=== PATIENT | female | born 1985 | race Caucasian/White ===

== ENCOUNTER 2017-01-02 13:52 | Emergency (ER) | payer OTHER ==
[2017-01-02 14:30] VITALS: BP 146/92; PULSE 80
--- NOTE | 2017-01-02 14:43 | ERPHSYRPT ---
- History of Present Illness Time Seen by Provider: 01/02/17 14:28 Source: patient, family (boyfriend) Patient Subjective Stated Complaint: rt toothache since yesterday Triage Nursing Assessment: rt toothache since yesterday. pain radiates down rt neck. multiple dental caries. 'my veins are all swollen and i cant touch my rt face.' took keflex 2 weeks ago for uti. pt states 'i have mental illness and if i needed to go to the dentist i would need to go to [facility] in [place]' Physician History: CC: toothache Hx: 31 y/o patient of Dr Aden. She is a chronic user of meth and THC. LMP 4 days ago. She has right sided toothache and mouth swelling and is worried about infection. She has had sepsis in the past. Was on keflex 3 weeks ago for sinus infx. Has not seen dentist as she is scared. Allergies/Adverse Reactions: No Known Drug Allergies Allergy (Unverified 01/02/17 14:30) Home Medications: No Home Meds 1 ea UD 01/02/17 [History] Hx Tetanus, Diphtheria Vaccination/Date Given: Yes Hx Influenza Vaccination/Date Given: No Hx Pneumococcal Vaccination/Date Given: No Immunizations Up to Date: Yes - Review of Systems Constitutional: Fever Ears, Nose, & Throat: Mouth Pain Respiratory: No Dyspnea Abdominal/Gastrointestinal: No Vomiting Skin: No Rash Neurological: No Headache - Past Medical History Pertinent Past Medical History: Yes Neurological History: No Pertinent History ENT History: No Pertinent History Cardiac History: No Pertinent History Respiratory History: Bronchitis Endocrine Medical History: No Pertinent History Musculoskeletal History: Other GI Medical History: Ulcer History: No Pertinent History Psycho-Social History: Anxiety, Bipolar, Depression, Other Female Reproductive Disorders: Other Other Medical History: CHRONIC LOWER BACK PAIN, "problems in uterus". miscarriage - Past Surgical History Past Surgical History: Yes Neuro Surgical History: No Pertinent History Cardiac: No Pertinent History Respiratory: No Pertinent History Gastrointestinal: No Pertinent History Genitourinary: No Pertinent History Musculoskeletal: No Pertinent History Female Surgical History: Other Other Surgical History: D&C - Social History Smoking Status: Current every day smoker How long have you smoked: 15 Exposure to second hand smoke: Yes Alcohol Use: Socially Drug Use: marijuana, methamphetamines Patient Lives Alone: No Significant Family History: no pertinent family hx - Female History Hx Last Menstrual Period: 1 week Hx Now: No - Nursing Vital Signs Nursing Vital Signs: Initial Vital Signs Temperature 98.9 F Temperature Source Oral Pulse Rate 80 Respiratory Rate 18 Blood Pressure [Right Arm] 146/92 Pain Intensity 8 - Physical Exam General Appearance: alert Eye Exam: bilateral eye: PERRL Throat Exam: pharynx normal Neck Exam: normal inspection, supple Cardiovascular/Respiratory Exam: normal breath sounds, regular rate/rhythm Neurologic Exam: alert, oriented x 3, cooperative Skin Exam: warm, dry, other (no facial cellulitis) Comments: right lower molars are decayed with surrounding swelling and tenderness. No trismus. No facial cellulitis. - Course Nursing assessment & vital signs reviewed: Yes - Progress Progress Note: 01/02/17 14:39 Advised abtx and dental follow up. Counseled pt/family regarding: diagnosis, need for follow-up - Departure Time of Disposition: 14:39 Departure Disposition: Home Clinical Impression: Dental abscess Condition: Fair Critical Care Time: No Referrals: SHAWNEE ADEN MD [Primary Care Provider] - Instructions: Tooth Decay Additional Instructions: Rx augmentin. Rx ibuprofen. See dentist as soon as possible. Prescriptions: Ibuprofen 600 mg PO Q6H PRN PRN #24 tablet PRN Reason: Pain Amox Tr/Potass Clav. 875 mg [Augmentin 875-125 Tablet] 875 mg PO BID #20 tablet
== END 2017-01-02 14:50 | disposition home or self-care (01) ==
LOC: ED 13:52
DX: K04.7 Periapical abscess without sinus (principal)
CPT/HCPCS: 99281; 99283

== ENCOUNTER 2019-02-07 12:59 | Inpatient (IN) | payer OTHER ==
[2019-02-07 13:34] VITALS: BP 112/75; PULSE 97
[2019-02-07] MEDS ORDERED: OMNIPEN 2 GM / NACL 100ML 100 ML ONE (14:06)
[2019-02-07] MEDS ORDERED: Lactated Ringers 1,000 ML IV ONE (14:06)
[2019-02-07] MEDS ORDERED: TYLENOL EXTRA STRENGTH 500 MG PO PRN (14:16)
[2019-02-07] MEDS ORDERED: OMNIPEN 2 GM / NACL 100ML 100 ML IV ONE (14:16)
[2019-02-07] MEDS ORDERED: PITOCIN 30 UNITS/ LR 500 ML 500 ML IV SCH (14:30)
[2019-02-07] MEDS ORDERED: Lactated Ringers 1,000 ML IV SCH (14:30)
[2019-02-07 14:55] LABS: BASOPHIL % 0.1 % (0.0-0.4); Basophil (Absolute #) 0.01 (0-0.4); Eosinophil % 1.1 % (0.00-5.0); Eosinophil (Absolute #) 0.09 (0-0.5); Granulocyte Absolute (ANC) 4.71 (1.4-6.9); Granulocytes % 57.2 % (36.0-66.0); Hematocrit 36.9 % (35-47); Hemoglobin 12.4 gm/dl (12.0-16.0); Lymphocyte (Absolute #) 2.27 (1.0-4.6); Lymphocytes % 27.6 % (24.0-44.0); Mean Cell Volume 105.7 fl (78-100); Mean Corpuscular Hemoglobin 35.5 pg (26-32); Mean Corpuscular Hgb Concent. 33.6 g/dl (32-36); Mean Platelet Volume 10.2 fl (6-9.5); Monocyte (Absolute #) 1.15 (0.0-1.3); Platelet Count 274 K/mm3 (150-450); Red Blood Count 3.49 M/mm3 (4.1-5.4); Red Cell Distribution Width 13.7 % (11.5-14.0); White Blood Count 8.2 K/mm3 (4.0-10.5)
[2019-02-07 16:27] LABS: ABO TYPING O; Antibody Screen NEGATIVE (NEGATIVE); RH TYPING POSITIVE
[2019-02-07 16:57] LABS: Amphetamine,Urine POSITIVE (NEGATIVE)
[2019-02-07 17:01] LABS: Barbiturate,Urine NEGATIVE (NEGATIVE); Benzodiazepine,Urine NEGATIVE (NEGATIVE); Cocaine,Urine NEGATIVE (NEGATIVE); Methadone,Urine NEGATIVE (NEGATIVE); Opiate,Urine NEGATIVE (NEGATIVE); PCP,Urine NEGATIVE (NEGATIVE); THC,Urine NEGATIVE (NEGATIVE)
[2019-02-10 15:13] LABS: Immune Status: Immune
[2019-02-10 20:20] LABS: RPR Screen Non Reactive (Non Reactive)
== END 2019-02-07 18:20 | disposition short-term general hospital (02) | DRG 833 ==
LOC: OB 12:59 → OBSVTOIN 12:59
PROVIDERS: ADMIT Family Medicine; ATTEND Family Medicine
DX: O42.113 Preterm premature rupture of membranes, onset of labor more than 24 hours following rupture, third trimester (principal); Z3A.35 35 weeks gestation of pregnancy
CPT/HCPCS: 36415; 80307; 83986; 85025; 86592; 86593; 86701; 86702; 86762; 86850; 86900; 86901; 87340; 87389; J0290; 0064U; 0065U

== ENCOUNTER 2019-09-29 12:25 | Emergency (ER) | payer MEDICAID, OTHER ==
--- NOTE | 2019-09-29 12:46 | ERPHSYRPT ---
- History of Present Illness Time Seen by Provider: 09/29/19 12:46 Source: patient Exam Limitations: no limitations Physician History: 34m y/o white female presents with "sores" on several sites on her body. 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 pt also has a h/o chlamydial infection that has gone untx. pt does not want any work up except for test. Timing/Duration: gradual onset Severity: mild ENT Location: ear (R) Prearrival Treatment: no prearrival treatment Modifying Factors: Improves With: other (nothing) Associated Symptoms: other (skin sore left ext ear) Allergies/Adverse Reactions: No Known Drug Allergies Allergy (Verified 09/29/19 12:56) Hx Tetanus, Diphtheria Vaccination/Date Given: Yes Hx Influenza Vaccination/Date Given: No Hx Pneumococcal Vaccination/Date Given: No - Review of Systems Constitutional: No Symptoms Eyes: No Symptoms Ears, Nose, & Throat: No Symptoms Respiratory: No Symptoms Cardiac: No Symptoms Abdominal/Gastrointestinal: No Symptoms Genitourinary Symptoms: No Symptoms Musculoskeletal: No Symptoms Skin: Other (skin lesions multiple) Neurological: No Symptoms Psychological: No Symptoms Endocrine: No Symptoms Hematologic/Lymphatic: No Symptoms Immunological/Allergic: No Symptoms All Other Systems: Reviewed and Negative - Past Medical History Pertinent Past Medical History: No Neurological History: No Pertinent History ENT History: No Pertinent History Cardiac History: No Pertinent History Respiratory History: No Pertinent History Endocrine Medical History: No Pertinent History Musculoskeletal History: No Pertinent History GI Medical History: No Pertinent History History: No Pertinent History Psycho-Social History: No Pertinent History Female Reproductive Disorders: No Pertinent History Other Medical History: CHRONIC LOWER BACK PAIN, "problems in uterus". miscarriage - Past Surgical History Past Surgical History: Yes Neuro Surgical History: No Pertinent History Cardiac: No Pertinent History Respiratory: No Pertinent History Gastrointestinal: No Pertinent History Genitourinary: No Pertinent History Musculoskeletal: No Pertinent History Female Surgical History: Dilation & Curettage Other Surgical History: D&C 2001 - Social History Smoking Status: Current every day smoker How long have you smoked: 20+yrs Exposure to second hand smoke: Yes Alcohol Use: Socially Drug Use: marijuana Patient Lives Alone: No Significant Family History: no pertinent family hx - Nursing Vital Signs Nursing Vital Signs: Initial Vital Signs Temperature 98.3 F 09/29/19 12:39 Pulse Rate 84 02/03/20 12:39 Respiratory Rate 20 09/29/19 12:39 Blood Pressure 147/92 09/29/19 12:39 O2 Sat by Pulse Oximetry 100 09/29/19 12:39 Pain Scale Pain Intensity 8 - Physical Exam General Appearance: no apparent distress, alert, anxiety Eye Exam: bilateral eye: normal inspection, PERRL, EOMI Ear Exam: right ear: auricle normal, left ear: other (external left auricle with superficial scalding) Nasal Exam: normal inspection Throat Exam: normal Neck Exam: normal inspection, non-tender, supple, full range of motion, trachea midline Cardiovascular/Respiratory Exam: chest non-tender Abdominal Exam: non-tender Neurologic Exam: alert, oriented x 3, administrative supervisor II-XII nml as tested Skin Exam: other (several eschars with mild redness on body. eschar left auricle ) SpO2 Interpretation: normal O2 Delivery: Room Air - Course Nursing assessment & vital signs reviewed: Yes Ordered Tests: Active Orders 24 hr Category Date Time Status HCG,QUALITATIVE URINE Stat Lab 09/29/19 13:09 Completed Lab/Rad Data: Laboratory Results 09/29/19 Range/Units 13:09 Urine HCG, Qual NEGATIVE (Negative) - Progress Progress: unchanged Counseled pt/family regarding: diagnosis, need for follow-up - Departure Departure Disposition: Home Clinical Impression: Cellulitis of external ear, Chlamydial infection Condition: Stable Critical Care Time: No Additional Instructions: fill all medications and take as prescribed. follow up with primary doctor for further management Prescriptions: Azithromycin 250 mg [Zithromax 250 MG TABLET] 250 mg PO STAT #4 tablet Smz/Tmp Ds Tablet [Bactrim Ds Tablet] 1 udtab PO BID #14 tablet
[2019-09-29 12:57] VITALS: BP 147/92; PULSE 84; O2SAT 100
== END 2019-09-29 13:30 | disposition home or self-care (01) ==
LOC: ED 12:25
DX: H60.12 Cellulitis of left external ear (principal); A74.9 Chlamydial infection, unspecified
CPT/HCPCS: 84703; 99283

== ENCOUNTER 2019-12-02 12:32 | Emergency (ER) | payer MEDICAID ==
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
[2019-12-02 13:21] VITALS: BP 140/90; PULSE 102; O2SAT 97
== END 2019-12-02 13:05 | disposition left against medical advice (07) ==
LOC: ED 12:32
DX: S02.2XXA Fracture of nasal bones, initial encounter for closed fracture (principal); T74.11XA Adult physical abuse, confirmed, initial encounter; F10.129 Alcohol abuse with intoxication, unspecified; F20.9 Schizophrenia, unspecified; Z91.14 Patient's other noncompliance with medication regimen; R51 Headache; M54.9 Dorsalgia, unspecified; G89.29 Other chronic pain; F45.42 Pain disorder with related psychological factors
CPT/HCPCS: 99283

== ENCOUNTER 2020-09-12 17:47 | Observation (INO) | payer MEDICAID, OTHER ==
--- NOTE | 2020-09-12 18:22 | ERPHSYRPT ---
- History of Present Illness Source: patient Exam Limitations: no limitations Timing/Duration: hour(s) (3), sudden, improved Severity: moderate Character of Deficits: new weakness, altered sensation Deficits: decrease ability to walk Baseline/Normal Cognition: alert oriented x 3 Current Cognition: alert oriented x 3 Baseline Gait: walks w/o assistance Associated Symptoms: nausea, weakness, numbness/tingling in legs/feet, paresthesia, chest pain, No confusion, No fatigue, No loss of consciousness, No vomiting, No slurred speech Hx Tetanus, Diphtheria Vaccination/Date Given: Yes Hx Influenza Vaccination/Date Given: No Hx Pneumococcal Vaccination/Date Given: No <LYNNETTE GERBER - Last Filed: 09/12/20 18:17> <JET YU - Last Filed: 09/12/20 19:41> - History of Present Illness Time Seen by Provider: 09/12/20 17:59 Physician History: 35 years old female with history of anxiety depression, alcohol abuse in the past presented in the ER with chief complaint of sudden onset right-sided numbness tingling and some weakness around 3 PM when she was at the charge. It lasted for almost 10 minutes and started to improve. She has minimal weakness but still have tingling numbness in the right side more than the right lower extremity. Patient report all of a sudden she started to have some palpitation and dizzy feeling with some chest discomfort followed by numbness and weakness. Reports right sided especially right lower extremity feels heavier than the left one. She has difficulty ambulation with feeling as if she is going to fall on the right side. She still have some chest discomfort but denies any palpitations or shortness of breath. Patient reports she had a distaste in her throat and it seemed like she had a difficulty finding words but no slurring of speech. Denies any history of stroke or neurological deficit in the past. Patient reports she had at 3 glasses of wine last night. (LYNNETTE GERBER) Allergies/Adverse Reactions: No Known Drug Allergies Allergy (Verified 09/12/20 18:44) Home Medications: No Reportable Medications [No Reported Medications] 12/02/19 [History] - Review of Systems Constitutional: Fatigue, Weakness Eyes: No Symptoms Ears, Nose, & Throat: No Symptoms Respiratory: No Symptoms Cardiac: Chest Pain, Palpitations Abdominal/Gastrointestinal: Nausea Genitourinary Symptoms: No Symptoms Musculoskeletal: No Symptoms Skin: No Symptoms Neurological: Dizziness, Parasthesia, Sensory Changes Psychological: Anxiety, Depression Endocrine: No Symptoms Hematologic/Lymphatic: No Symptoms Immunological/Allergic: No Symptoms <LYNNETTE GERBER - Last Filed: 09/12/20 18:17> - Past Medical History Pertinent Past Medical History: No Neurological History: No Pertinent History ENT History: No Pertinent History Cardiac History: No Pertinent History Respiratory History: No Pertinent History Endocrine Medical History: No Pertinent History Musculoskeletal History: No Pertinent History GI Medical History: No Pertinent History History: No Pertinent History Psycho-Social History: No Pertinent History Female Reproductive Disorders: No Pertinent History Other Medical History: CHRONIC LOWER BACK PAIN, "problems in uterus". miscarriage - Past Surgical History Past Surgical History: Yes Neuro Surgical History: No Pertinent History Cardiac: No Pertinent History Respiratory: No Pertinent History Gastrointestinal: No Pertinent History Genitourinary: No Pertinent History Musculoskeletal: No Pertinent History Female Surgical History: Dilation & Curettage Other Surgical History: D&C 2001 - Social History Smoking Status: Current every day smoker How long have you smoked: 20+yrs Exposure to second hand smoke: Yes Alcohol Use: Socially Drug Use: marijuana Patient Lives Alone: No Significant Family History: no pertinent family hx - Female History Hx Now: No <LYNNETTE GERBER - Last Filed: 09/12/20 18:17> - Ben Coma Scale Best Eye Response ([place]): (4) open spontaneously Best Verbal Response (Ben): (5) oriented Best Motor Response (Ben): (6) obeys commands Ben Total: 15 - Physical Exam General Appearance: no apparent distress, alert, anxiety Eye Exam: bilateral eye: normal inspection, PERRL, EOMI Ears, Nose, Throat Exam: normal ENT inspection, TMs normal, pharynx normal Neck Exam: normal inspection, non-tender, supple, full range of motion Respiratory: normal breath sounds, lungs clear Cardiovascular: regular rate/rhythm, normal heart sounds Gastrointestinal: soft, normal bowel sounds, No tenderness Back Exam: normal inspection, normal range of motion Extremity Exam: normal inspection, normal range of motion, pelvis stable Mental Status: alert, oriented x 3, cooperative retail furniture sales Exam: normal hearing, normal speech, PERRL Coordination/Gait: normal finger to nose, normal cerebellar function, No normal gait Motor/Sensory: no motor deficit, no pronator drift, negative Babinski's sign, sensory deficit (It is of fine touch on the right upper and lower extremities as compared to left) DTR: bicep (R): 2+, bicep (L): 2+, knee (R): 2+, knee (L): 2+ Skin Exam: normal color SpO2 Interpretation: normal O2 Delivery: Room Air <LYNNETTE GERBER - Last Filed: 09/12/20 18:17> - Nursing Vital Signs Nursing Vital Signs: Initial Vital Signs Temperature 99.2 F 09/12/20 17:50 Pulse Rate 89 09/12/20 17:50 Respiratory Rate 14 09/12/20 17:50 Blood Pressure 141/92 09/12/20 17:50 O2 Sat by Pulse Oximetry 97 09/12/20 17:50 Pain Scale Pain Intensity 5 - Course Nursing assessment & vital signs reviewed: Yes EKG Interpreted by Me: Sinus Rhythm, NORMAL AXIS, NORMAL INTERVALS, NORMAL QRS, Non-specific ST Changes - CT Exams Head CT Interpretation: Tele-radiologist Report, No/Intracranial Hemorrhag <JET YU - Last Filed: 09/12/20 19:41> Ordered Tests: Active Orders 24 hr Category Date Time Status Helicopter Dispatcher STAT Care 09/12/20 18:07 Active Clean Catch Urine Specimen STAT Care 09/12/20 18:49 Active EKG-ER Only STAT Care 09/12/20 18:06 Active IV Insertion STAT Care 09/12/20 18:06 Active NPO (ED) STAT Care 09/12/20 18:06 Active POCT Glucose Check STAT Care 09/12/20 18:06 Active Consult Neurology ROUTINE Cons 09/12/20 18:46 Completed CHEST 1 VIEW (PORTABLE) Stat Exams 09/12/20 18:30 Ordered HEAD WITHOUT CONTRAST [CT] Stat Exams 09/12/20 17:57 Taken CBC W DIFF Stat Lab 09/12/20 18:20 Completed CMP Stat Lab 09/12/20 18:20 Completed CULTURE,URINE Stat Lab 09/12/20 18:26 Received D-DIMER QUANTITATIVE Stat Lab 09/12/20 18:20 Completed ETHYL ALCOHOL Stat Lab 09/12/20 18:20 Completed HCG,QUALITATIVE URINE Stat Lab 09/12/20 18:26 Completed POCT GLUCOSE Stat Lab 09/12/20 18:13 Completed PROTIME WITH INR Stat Lab 09/12/20 18:20 Completed PTT Stat Lab 09/12/20 18:20 Completed TROPONIN Q3H Lab 09/12/20 18:20 Completed TROPONIN Q3H Lab 09/12/20 21:15 Ordered UA W/RFX UR CULTURE Stat Lab 09/12/20 18:26 Completed Urine Triage Profile Stat Lab 09/12/20 18:20 Completed Medication Summary Generic Name Dose Route Start Last Admin Trade Name Freq PRN Reason Stop Dose Admin Ceftriaxone Sodium/Dextrose 1 g in 50 mls @ 100 mls/hr 09/12/20 19:11 09/12/20 19:19 Rocephin 1 Gm-D5w 50 Ml Bag IV 09/12/20 19:40 100 ml/hr STAT ONE 100 mls/hr Administration Discontinued Medications Generic Name Dose Route Start Last Admin Trade Name Freq PRN Reason Stop Dose Admin Ceftriaxone Sodium/Dextrose Confirm 09/12/20 19:17 Rocephin 1 Gm-D5w 50 Ml Bag Administered 09/12/20 19:18 Dose 1 g in 50 mls @ ud IV .STK-MED ONE Lab/Rad Data: Laboratory Result Diagrams 09/12/20 18:20 09/12/20 18:20 Laboratory Results 09/12/20 09/12/20 09/12/20 Range/Units 18:26 18:26 18:20 WBC (4.0-10.5) K/mm3 RBC (4.1-5.4) M/mm3 Hgb (12.0-16.0) gm/dl Hct (35-47) % MCV (78-100) fl MCH (26-32) pg MCHC (32-36) g/dl RDW (11.5-14.0) % Plt Count (150-450) K/mm3 MPV (7.5-11.0) fl Gran % (36.0-66.0) % Eos # (Auto) (0-0.5) Absolute Lymphs (auto) (1.0-4.6) Absolute Monos (auto) (0.0-1.3) Lymphocytes % (24.0-44.0) % Monocytes % (0.0-12.0) % Eosinophils % (0.00-5.0) % Basophils % (0.0-0.4) % Absolute Granulocytes (1.4-6.9) Basophils # (0-0.4) PT (9.95-12.35) SECONDS INR (0.8-3.0) APTT (25.3-37.0) SECONDS D-Dimer (215-500) ng/mL Sodium (137-145) mmol/L Potassium (3.5-5.1) mmol/L Chloride (98-107) mmol/L Carbon Dioxide (22-30) mmol/L Anion Gap (5-15) MEQ/L BUN (7-17) mg/dL Creatinine (0.52-1.04) mg/dL Estimated GFR ML/MIN Glucose (74-106) mg/dL POC Glucometer (74 to 106) mg/dL Calcium (8.4-10.2) mg/dL Total Bilirubin (0.2-1.3) mg/dL AST (14-36) U/L ALT (0-35) U/L Alkaline Phosphatase (38-126) U/L Troponin I (0.000-0.034) ng/mL Serum Total Protein (6.3-8.2) g/dL Albumin (3.5-5.0) g/dL Urine Color YELLOW (YELLOW) Urine Appearance SLIGHTLY CLOUDY (CLEAR) Urine pH 5.0 (5-6) Ur Specific [place] 1.024 (1.005-1.025) Urine Protein NEGATIVE (Negative) Urine Ketones NEGATIVE (NEGATIVE) Urine Blood MODERATE (0-5) Jason/ul Urine Nitrite NEGATIVE (NEGATIVE) Urine Bilirubin NEGATIVE (NEGATIVE) Urine Urobilinogen 2 (0-1) mg/dL Ur Leukocyte Esterase TRACE (NEGATIVE) Urine WBC (Auto) 11-15 (0-5) /HPF Urine RBC (Auto) 0-2 (0-2) /HPF U Epithel Cells (Auto) RARE (FEW) /HPF Urine Bacteria (Auto) FEW (NEGATIVE) /HPF Urine Mucus (Auto) SLIGHT (NEGATIVE) /HPF Urine Culture Reflexed YES (NO) Urine Glucose NEGATIVE (NEGATIVE) mg/dL Urine HCG, Qual NEGATIVE (Negative) Urine Opiates Level (NEGATIVE) Ur Methadone (NEGATIVE) Urine Barbiturates (NEGATIVE) Ur Phencyclidine (PCP) (NEGATIVE) Urine Amphetamine (NEGATIVE) U Benzodiazepine Level (NEGATIVE) Urine Cocaine (NEGATIVE) Urine Marijuana (THC) (NEGATIVE) Ethyl Alcohol < 10 (0-10) mg/dL 09/12/20 09/12/20 09/12/20 Range/Units 18:20 18:20 18:20 WBC (4.0-10.5) K/mm3 RBC (4.1-5.4) M/mm3 Hgb (12.0-16.0) gm/dl Hct (35-47) % MCV (78-100) fl MCH (26-32) pg MCHC (32-36) g/dl RDW (11.5-14.0) % Plt Count (150-450) K/mm3 MPV (7.5-11.0) fl Gran % (36.0-66.0) % Eos # (Auto) (0-0.5) Absolute Lymphs (auto) (1.0-4.6) Absolute Monos (auto) (0.0-1.3) Lymphocytes % (24.0-44.0) % Monocytes % (0.0-12.0) % Eosinophils % (0.00-5.0) % Basophils % (0.0-0.4) % Absolute Granulocytes (1.4-6.9) Basophils # (0-0.4) PT 11.1 (9.95-12.35) SECONDS INR 0.98 (0.8-3.0) APTT 29.3 (25.3-37.0) SECONDS D-Dimer 462 (215-500) ng/mL Sodium (137-145) mmol/L Potassium (3.5-5.1) mmol/L Chloride (98-107) mmol/L Carbon Dioxide (22-30) mmol/L Anion Gap (5-15) MEQ/L BUN (7-17) mg/dL Creatinine (0.52-1.04) mg/dL Estimated GFR ML/MIN Glucose (74-106) mg/dL POC Glucometer (74 to 106) mg/dL Calcium (8.4-10.2) mg/dL Total Bilirubin (0.2-1.3) mg/dL AST (14-36) U/L ALT (0-35) U/L Alkaline Phosphatase (38-126) U/L Troponin I < 0.012 (0.000-0.034) ng/mL Serum Total Protein (6.3-8.2) g/dL Albumin (3.5-5.0) g/dL Urine Color (YELLOW) Urine Appearance (CLEAR) Urine pH (5-6) Ur Specific [place] (1.005-1.025) Urine Protein (Negative) Urine Ketones (NEGATIVE) Urine Blood (0-5) Jason/ul Urine Nitrite (NEGATIVE) Urine Bilirubin (NEGATIVE) Urine Urobilinogen (0-1) mg/dL Ur Leukocyte Esterase (NEGATIVE) Urine WBC (Auto) (0-5) /HPF Urine RBC (Auto) (0-2) /HPF U Epithel Cells (Auto) (FEW) /HPF Urine Bacteria (Auto) (NEGATIVE) /HPF Urine Mucus (Auto) (NEGATIVE) /HPF Urine Culture Reflexed (NO) Urine Glucose (NEGATIVE) mg/dL Urine HCG, Qual (Negative) Urine Opiates Level NEGATIVE (NEGATIVE) Ur Methadone NEGATIVE (NEGATIVE) Urine Barbiturates NEGATIVE (NEGATIVE) Ur Phencyclidine (PCP) NEGATIVE (NEGATIVE) Urine Amphetamine NEGATIVE (NEGATIVE) U Benzodiazepine Level NEGATIVE (NEGATIVE) Urine Cocaine NEGATIVE (NEGATIVE) Urine Marijuana (THC) NEGATIVE (NEGATIVE) Ethyl Alcohol (0-10) mg/dL 09/12/20 09/12/20 09/12/20 Range/Units 18:20 18:20 18:13 WBC 15.5 H (4.0-10.5) K/mm3 RBC 4.12 (4.1-5.4) M/mm3 Hgb 12.8 (12.0-16.0) gm/dl Hct 39.9 (35-47) % MCV 96.8 (78-100) fl MCH 31.1 (26-32) pg MCHC 32.1 (32-36) g/dl RDW 19.3 H (11.5-14.0) % Plt Count 408 (150-450) K/mm3 MPV 9.5 (7.5-11.0) fl Gran % 67.0 H (36.0-66.0) % Eos # (Auto) 0.13 (0-0.5) Absolute Lymphs (auto) 3.43 (1.0-4.6) Absolute Monos (auto) 1.50 H (0.0-1.3) Lymphocytes % 22.2 L (24.0-44.0) % Monocytes % 9.7 (0.0-12.0) % Eosinophils % 0.8 (0.00-5.0) % Basophils % 0.3 (0.0-0.4) % Absolute Granulocytes 10.35 H (1.4-6.9) Basophils # 0.04 (0-0.4) PT (9.95-12.35) SECONDS INR (0.8-3.0) APTT (25.3-37.0) SECONDS D-Dimer (215-500) ng/mL Sodium 135 L (137-145) mmol/L Potassium 3.7 (3.5-5.1) mmol/L Chloride 103 (98-107) mmol/L Carbon Dioxide 26 (22-30) mmol/L Anion Gap 10.0 (5-15) MEQ/L BUN 12 (7-17) mg/dL Creatinine 0.55 (0.52-1.04) mg/dL Estimated GFR > 60.0 ML/MIN Glucose 96 (74-106) mg/dL POC Glucometer 93 (74 to 106) mg/dL Calcium 9.1 (8.4-10.2) mg/dL Total Bilirubin 0.40 (0.2-1.3) mg/dL AST 30 (14-36) U/L ALT 28 (0-35) U/L Alkaline Phosphatase 83 (38-126) U/L Troponin I (0.000-0.034) ng/mL Serum Total Protein 8.7 H (6.3-8.2) g/dL Albumin 4.7 (3.5-5.0) g/dL Urine Color (YELLOW) Urine Appearance (CLEAR) Urine pH (5-6) Ur Specific [place] (1.005-1.025) Urine Protein (Negative) Urine Ketones (NEGATIVE) Urine Blood (0-5) Jason/ul Urine Nitrite (NEGATIVE) Urine Bilirubin (NEGATIVE) Urine Urobilinogen (0-1) mg/dL Ur Leukocyte Esterase (NEGATIVE) Urine WBC (Auto) (0-5) /HPF Urine RBC (Auto) (0-2) /HPF U Epithel Cells (Auto) (FEW) /HPF Urine Bacteria (Auto) (NEGATIVE) /HPF Urine Mucus (Auto) (NEGATIVE) /HPF Urine Culture Reflexed (NO) Urine Glucose (NEGATIVE) mg/dL Urine HCG, Qual (Negative) Urine Opiates Level (NEGATIVE) Ur Methadone (NEGATIVE) Urine Barbiturates (NEGATIVE) Ur Phencyclidine (PCP) (NEGATIVE) Urine Amphetamine (NEGATIVE) U Benzodiazepine Level (NEGATIVE) Urine Cocaine (NEGATIVE) Urine Marijuana (THC) (NEGATIVE) Ethyl Alcohol (0-10) mg/dL <LYNNETTE GERBER - Last Filed: 09/12/20 18:17> - Progress Progress: improved, re-examined Discussed with : Clif[place] Will see patient in: hospital (observation) Counseled pt/family regarding: drug and/or alcohol abuse, lab results, diagnosis, need for follow-up, rad results <JET YU - Last Filed: 09/12/20 19:41> - Progress Progress Note: 09/12/20 18:32 35 years old is evaluated for sudden onset palpitation followed by dizziness, lightheadedness and right-sided numbness weakness. She has minimal subjective weakness and numbness is also improving. She is made stroke activated. Prompt CT head without contrast is obtained. Will obtain SOC neurology consult promptly. Work-up is pending at present, care is transferred to Dr. Sullivan at shift change (LYNNETTE GERBER) 09/12/20 18:49 Taken over at change of shift from Dr. Gerber after pt intro, and discussion of DDx and pending labs/studies; 09/12/20 19:[address] Gooden Neuro consult and can be placed on Obs for possible TIA - No current CVA likely but low prob possible TIA to obs as precaution) and continue monitoring for ETOH withdrawal and cardiac. 09/12/20 19:[address] Draper and pt and all agree that it is best to place the pt in on TIA workup obs telemetry. (JET YU) <LNYNETTE GERBER - Last Filed: 09/12/20 18:17> - Departure Departure Disposition: Observation Critical Care Time: No <JET YU - Last Filed: 09/12/20 19:41> - Departure Clinical Impression: UTI (urinary tract infection), TIA (transient ischemic attack), Alcohol abuse, Chest pain Condition: Good Referrals: DOCTOR,NO FAMILY [Primary Care Provider] -
[2020-09-12 18:36] LABS: Absolute Neutrophil Ct (ANC) 10.35 (1.4-6.9); BASOPHIL % 0.3 % (0.0-0.4); Basophil (Absolute #) 0.04 (0-0.4); Eosinophil % 0.8 % (0.00-5.0); Eosinophil (Absolute #) 0.13 (0-0.5); Hematocrit 39.9 % (35-47); Hemoglobin 12.8 gm/dl (12.0-16.0); Lymphocyte (Absolute #) 3.43 (1.0-4.6); Lymphocytes % 22.2 % (24.0-44.0); Mean Cell Volume 96.8 fl (78-100); Mean Corpuscular Hemoglobin 31.1 pg (26-32); Mean Corpuscular Hgb Concent. 32.1 g/dl (32-36); Mean Platelet Volume 9.5 fl (7.5-11.0); Monocytes % 9.7 % (0.0-12.0); Platelet Count 408 K/mm3 (150-450); Red Blood Count 4.12 M/mm3 (4.1-5.4); Red Cell Distribution Width 19.3 % (11.5-14.0); White Blood Count 15.5 K/mm3 (4.0-10.5)
[2020-09-12 18:37] LABS: Appearance SLIGHTLY CLOUDY (CLEAR); Bacteria FEW /HPF (NEGATIVE); Bilirubin NEGATIVE (NEGATIVE); Blood MODERATE Ery/ul (0-5); Epithelial Cells RARE /HPF (FEW); Glucose NEGATIVE (NEGATIVE); Ketones NEGATIVE (NEGATIVE); Leukocyte Esterase TRACE (NEGATIVE); Mucus SLIGHT /HPF (NEGATIVE); Nitrite NEGATIVE (NEGATIVE); Protein,Urine Dip NEGATIVE (Negative); RBC 0-2 /HPF (0-2); Specific Gravity 1.024 (1.005-1.025); Urobilinogen 2 mg/dL (0-1)
[2020-09-12 18:42] LABS: INR 0.98 (0.8-3.0); PROTIME 11.1 SECONDS (9.95-12.35)
[2020-09-12 18:45] LABS: PTT 29.3 SECONDS (25.3-37.0)
[2020-09-12 18:53] LABS: ALBUMIN 4.7 g/dL (3.5-5.0); ALKALINE PHOSPHATASE 83 U/L (38-126); BLOOD UREA NITROGEN 12 mg/dL (7-17); CHLORIDE 103 mmol/L (98-107); Calcium 9.1 mg/dL (8.4-10.2); Carbon Dioxide 26 mmol/L (22-30); Creatinine 1 0.55 mg/dL (0.52-1.04); EST GLOMERULAR FILTRATION RATE > 60.0 ML/MIN; Glucose 96 mg/dL (74-106); Potassium 3.7 mmol/L (3.5-5.1); SGOT/AST 30 U/L (14-36); SGPT/ALT 28 U/L (0-35); SODIUM 135 mmol/L (137-145); Total Protein 8.7 g/dL (6.3-8.2)
[2020-09-12] MEDS ORDERED: ROCEPHIN 1 Gm-D5w 50 ml Bag** 1 G/50 ML IVPB IV ONE ×2 (19:11→19:17)
[2020-09-12 19:17] LABS: Amphetamine,Urine NEGATIVE (NEGATIVE); Barbiturate,Urine NEGATIVE (NEGATIVE); Benzodiazepine,Urine NEGATIVE (NEGATIVE); Cocaine,Urine NEGATIVE (NEGATIVE); Methadone,Urine NEGATIVE (NEGATIVE); Opiate,Urine NEGATIVE (NEGATIVE); PCP,Urine NEGATIVE (NEGATIVE); THC,Urine NEGATIVE (NEGATIVE)
[2020-09-12] MEDS ORDERED: Zofran 4 MG/2 ML VIAL IV PRN ×2 (20:48)
[2020-09-12] MEDS ORDERED: TYLENOL 325 MG PO PRN ×2 (20:48)
[2020-09-12] MEDS ORDERED: MAALOX ES 30 ML UNIT DOSE PO PRN (20:48)
[2020-09-12] MEDS ORDERED: Phenergan 25 MG INJ IM PRN (20:48)
[2020-09-12] MEDS ORDERED: MILK OF MAGNESIA 30 ML PO PRN (20:48)
[2020-09-12] MEDS ORDERED: Senokot-S Tablet PO PRN (20:48)
[2020-09-12] MEDS ORDERED: TORAdol 30 mg Injection IV PRN (20:48)
[2020-09-12] MEDS ORDERED: Sodium Chloride 0.9% 1000 ML 1,000 ML IV SCH (20:48)
[2020-09-12] MEDS ORDERED: HUMULIN R SQ PRN (20:48)
[2020-09-12 20:59] LABS: Slide Review 1 YES
[2020-09-12] MEDS ORDERED: Neurontin 100 MG PO PRN (21:06)
[2020-09-12] MEDS ORDERED: Ativan 1 MG PO PRN (21:07)
[2020-09-12] MEDS ORDERED: Nicoderm CQ 21 MG TOP PRN (21:08)
[2020-09-12] MEDS ORDERED: Pepcid 20 MG VIAL IV SCH (22:00)
[2020-09-13 06:23] LABS: Absolute Neutrophil Ct (ANC) 5.31 (1.4-6.9); BASOPHIL % 0.4 % (0.0-0.4); Basophil (Absolute #) 0.04 (0-0.4); Eosinophil % 1.7 % (0.00-5.0); Eosinophil (Absolute #) 0.18 (0-0.5); Hematocrit 37.5 % (35-47); Hemoglobin 11.7 gm/dl (12.0-16.0); Lymphocyte (Absolute #) 3.52 (1.0-4.6); Lymphocytes % 34.2 % (24.0-44.0); Mean Cell Volume 98.4 fl (78-100); Mean Corpuscular Hemoglobin 30.7 pg (26-32); Mean Corpuscular Hgb Concent. 31.2 g/dl (32-36); Mean Platelet Volume 9.5 fl (7.5-11.0); Monocyte (Absolute #) 1.24 (0.0-1.3); Monocytes % 12.1 % (0.0-12.0); Neutrophil % 51.6 % (36.0-66.0); Platelet Count 336 K/mm3 (150-450); Red Blood Count 3.81 M/mm3 (4.1-5.4); Red Cell Distribution Width 19.2 % (11.5-14.0); White Blood Count 10.3 K/mm3 (4.0-10.5)
[2020-09-13 07:25] LABS: ALBUMIN 3.3 g/dL (3.5-5.0); ALKALINE PHOSPHATASE 60 U/L (38-126); ANION GAP 7.5 MEQ/L (5-15); BLOOD UREA NITROGEN 13 mg/dL (7-17); CHLORIDE 107 mmol/L (98-107); Calcium 8.1 mg/dL (8.4-10.2); Carbon Dioxide 25 mmol/L (22-30); Cholesterol 160 mg/dL (50-200); Creatinine 1 0.53 mg/dL (0.52-1.04); EST GLOMERULAR FILTRATION RATE > 60.0 ML/MIN; Glucose 83 mg/dL (74-106); HDL CHOLESTEROL 60 mg/dL (40-60); LDL, DIRECT 70 mg/dL (30-100); Potassium 4.1 mmol/L (3.5-5.1); Risk Ratio 2.7; SGOT/AST 32 U/L (14-36); SGPT/ALT 19 U/L (0-35); SODIUM 136 mmol/L (137-145); TRIGLYCERIDE 82 mg/dL (30-150); Total Protein 6.4 g/dL (6.3-8.2)
[2020-09-13 08:03] VITALS: O2SAT 97
[2020-09-13 08:22] VITALS: BP 110/56; PULSE 72
--- NOTE | 2020-09-13 08:40 | XRAY ---
Indication: Numbness. Comparison: June 17, 2016. Portable apical lordotic chest again demonstrates normal heart, lungs, and bony thorax with incidental left hilar calcified node.
--- NOTE | 2020-09-13 08:42 | XRAY ---
Indication: Right numbness. Speech disturbance. Stroke symptoms. Multiple contiguous axial images obtained through the head without contrast. Comparison: None Normal appearing brain parenchyma, ventricles, and bony calvarium. Visualized paranasal sinuses and mastoid air cells are clear. Impression: Normal CT head without contrast exam. Comment: Preliminary interpretation was made by [facility]. No critical discrepancy.
[2020-09-13] MEDS ORDERED: Ecotrin 325 MG PO SCH (10:00)
[2020-09-13] MEDS ORDERED: ENOXAPARIN SODIUM SQ SCH (10:00)
[2020-09-13] MEDS ORDERED: ROCEPHIN 1 Gm-D5w 50 ml Bag** 1 G/50 ML IVPB IV SCH (18:00)
--- NOTE | 2020-09-14 07:51 | HP ---
CHIEF COMPLAINT: Sudden blurred vision and difficulty moving the right arm and leg and difficulty speaking. HISTORY OF PRESENT ILLNESS: The patient is a 35 year old white female who reports she was in hinduism when she had the sudden onset of the above the symptoms which lasted for several minutes. She presented to the emergency room at which time the patient was essentially back to normal. The patient's medical history is significant for anxiety and depression, significant alcohol abuse. The patient currently has no regular home. She will be going home with someone who lives in [facility] and will be staying with them for the foreseeable future. PAST MEDICAL/SURGICAL HISTORY: Significant only for childbirth and the alcohol problem. The patient reports that she had a D&C in 2001. HOME MEDICATIONS: The patient is on no medications. ALLERGIES: NKDA. PHYSICAL EXAMINATION: The patient's vital signs on admission showed temperature to be 99.2F, pulse 89, respiratory rate 14 and blood pressure 141/92. O2 saturation was 97%. HEENT: Normocephalic, atraumatic. Pupils equal round reactive to light. Extraocular movements intact. Oropharynx is pink and moist. NECK: Supple without lymphadenopathy, thyromegaly or JVD. CHEST: Clear to auscultation. HEART: Regular rate and rhythm without murmurs, rubs or gallops. ABDOMEN: Soft. No palpable masses. EXTREMITIES: Without cyanosis, clubbing or edema. NEUROLOGIC: The patient is alert and oriented x3. No focal deficits are noted. LAB DATA AND TESTS: UA showed 11-15 white blood cells per high power field but negative nitrite. The patient has had no complaints of urinary symptoms. Her urine HCG was negative. Urine drug screen was negative. D-dimer was normal at 492. INR 0.98. Troponins were negative. Alcohol was negative. The patient's metabolic panel showed a glucose of 96, BUN 12, creatinine 0.55. Electrolytes were essentially normal other than slightly low sodium of 135. Liver enzymes were normal. Total protein slightly elevated at 8.7. She had a 15,500 white count with 12.8 hemoglobin and PLT count of 408,000. HOSPITAL COURSE: The patient was admitted to the medicine [facility]rez. She did have a tele-neurology consult who felt the patient should be admitted for observation and work up. She has been placed on aspirin and Plavix. We have requested the patient to receive MRI of the brain, echocardiogram and carotid Doppler's. During our discussion with the patient this morning, she reports that she has someone coming in for therapy at 0800 hours this morning and does not want to stay for her evaluation. The importance of this has been discussed with the patient as apparently she does not have a primary care provider otherwise and the patient is still insistent upon going home. We are currently trying to talk her into staying to get this evaluation completed before she goes home. She has also been instructed that symptoms of a stroke are a medical emergency and she should return immediately should she have further symptoms of neurological problems.
== END 2020-09-13 09:05 | disposition home or self-care (01) ==
LOC: ED 17:47 → MED SURG 20:46
PROVIDERS: ADMIT Family Medicine; ATTEND Family Medicine
DX: G45.9 Transient cerebral ischemic attack, unspecified (principal); R53.1 Weakness; R11.0 Nausea; R20.0 Anesthesia of skin; R07.9 Chest pain, unspecified; N39.0 Urinary tract infection, site not specified; R42 Dizziness and giddiness; R00.2 Palpitations; F10.10 Alcohol abuse, uncomplicated
CPT/HCPCS: 36000; 36415; 70450; 71045; 80053; 80061; 80307; 81001; 82947; 83721; 84484; 84703; 85025; 85379; 85610; 85730; 87077; 87086; 87186; 93005; 93041; 93268; 96365; 99285; G0378; G0480; Q3014; J0696; A9270-GY

== ENCOUNTER 2021-06-04 11:19 | Emergency (ER) | payer OTHER ==
[2021-06-04] MEDS ORDERED: Rocephin 1000 MG INJ IM ONE (11:31)
[2021-06-04 11:32] VITALS: BP 120/72; PULSE 107; O2SAT 97
[2021-06-04] MEDS ORDERED: Rocephin 1000 MG INJ ONE (11:33)
[2021-06-04] MEDS ORDERED: XYLOCAINE 1% HCL 20 ML MDV ONE (11:34)
--- NOTE | 2021-06-04 11:37 | ERPHSYRPT ---
- History of Present Illness Time Seen by Provider: 06/04/21 11:31 Source: patient Exam Limitations: no limitations Physician History: Patient is 35-year-old female came to the emergency room with complaining of right upper eyelid swelling. Patient developed a pimple on her lateral side of the right upper eyelid which she tried to pinch it afterwards it got bigger and her right upper eyelid got swollen. She denies any fever or eye discharge. Timing/Duration: yesterday Severity: moderate Associated Symptoms: denies symptoms Allergies/Adverse Reactions: No Known Drug Allergies Allergy (Verified 06/04/21 11:26) Hx Tetanus, Diphtheria Vaccination/Date Given: Yes Hx Influenza Vaccination/Date Given: No Hx Pneumococcal Vaccination/Date Given: No - Review of Systems Constitutional: No Symptoms Eyes: Other (swollen right upper eyelid) Ears, Nose, & Throat: No Symptoms Respiratory: No Symptoms Cardiac: No Symptoms Abdominal/Gastrointestinal: No Symptoms Genitourinary Symptoms: No Symptoms Musculoskeletal: No Symptoms - Past Medical History Pertinent Past Medical History: No Neurological History: No Pertinent History ENT History: No Pertinent History Cardiac History: No Pertinent History Respiratory History: No Pertinent History Endocrine Medical History: No Pertinent History Musculoskeletal History: Fibromyalgia, Fractures GI Medical History: Hepatitis History: Other Psycho-Social History: Anxiety, Bipolar, Depression, Other Female Reproductive Disorders: No Pertinent History Other Medical History: 2016 Fractured both feet. 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 - Past Surgical History Past Surgical History: Yes Neuro Surgical History: No Pertinent History Cardiac: No Pertinent History Respiratory: No Pertinent History Gastrointestinal: No Pertinent History Genitourinary: No Pertinent History Musculoskeletal: No Pertinent History Female Surgical History: Dilation & Curettage Other Surgical History: D&C 2001 - Social History Smoking Status: Heavy tobacco smoker How long have you smoked: 20years Exposure to second hand smoke: Yes Alcohol Use: Socially Drug Use: none Patient Lives Alone: No Significant Family History: no pertinent family hx - Nursing Vital Signs Nursing Vital Signs: Initial Vital Signs Temperature 97.6 F 06/04/21 11:27 Pulse Rate 107 H 06/04/21 11:27 Respiratory Rate 18 06/04/21 11:27 Blood Pressure 120/72 06/04/21 11:27 O2 Sat by Pulse Oximetry 97 06/04/21 11:27 Pain Scale Pain Intensity 6 - Physical Exam General Appearance: no apparent distress Eye Exam: PERRL/EOMI, other (Swollen right upper eyelid with pimple on lateral side of right upper eyelid. Conjunctivae appears normal cornea appears normal lacrimal ducts appears normal.) - Course Nursing assessment & vital signs reviewed: Yes Ordered Tests: Medication Summary Discontinued Medications Generic Name Dose Route Start Last Admin Trade Name Ivanna PRN Reason Stop Dose Admin Ceftriaxone Sodium 1,000 mg 06/04/21 11:31 06/04/21 11:36 Rocephin 1000 Mg Inj IM 06/04/21 11:32 1,000 mg STAT ONE Administration Ceftriaxone Sodium Confirm 06/04/21 11:33 Rocephin 1000 Mg Inj Administered 06/04/21 11:34 Dose 1,000 mg .ROUTE .STK-MED ONE Lidocaine HCl Confirm 06/04/21 11:34 Xylocaine 1% Hcl 20 Ml Mdv Administered 06/04/21 11:35 Dose 3 ml .ROUTE .STK-MED ONE - Progress Progress: unchanged Counseled pt/family regarding: diagnosis, need for follow-up - Departure Departure Disposition: Home Clinical Impression: Cellulitis of right upper eyelid Condition: Stable Critical Care Time: No Referrals: DOCTOR,NO FAMILY [Primary Care Provider] - Follow Up with PCP/3 days Additional Instructions: Discharge/Care Plan MITCHELLDAVID VELASQUEZ was seen on 06/04/21 in the Emergency Room. The patient was counseled regarding Diagnosis,Lab results, Imaging studies, need for follow up and when to return to the Emergency Room. Prescriptions given: Discharge Note I have spoken with the patient and/or caregivers. I have explained the patient's condition, diagnosis and treatment plan based on the information available to me at this time. I have answered the patient's and/or caregiver's questions and addressed any concerns. The patient and/or caregivers have as good understanding of the patient's diagnosis, condition and treatment plan as can be expected at this point. The vital signs have been stable. The patient's condition is stable and appropriate for discharge from the emergency department. The patient will pursue further outpatient evaluation with the primary care physician or other designated or consulting physician as outlined in the discharge instructions. The patient and/or caregivers are agreeable to this plan of care and follow-up instructions have been explained in detail. The patient and/or caregivers have received these instruction. The patient/and or caregivers are aware that any significant change in condition or worsening of symptoms should prompt an immediate return to this or the closest emergency department or call 911. Prescriptions: Amoxicillin 500 mg Cap [Amoxil 500 mg] 500 mg PO TID #30 cap Rocky/Poly/Hc Eye Drops [Cortisporin Eye Drops] 4 drops OP QID #7.5 drops Ibuprofen 600 mg PO TID #15 tablet
== END 2021-06-04 11:54 | disposition home or self-care (01) ==
LOC: ED 11:19
DX: H00.031 Abscess of right upper eyelid (principal)
CPT/HCPCS: 96372; 99283; J0696

== ENCOUNTER 2021-06-06 15:11 | Emergency (ER) | payer OTHER ==
--- NOTE | 2021-06-06 15:45 | ERPHSYRPT ---
- History of Present Illness Source: patient Exam Limitations: no limitations Patient Subjective Stated Complaint: pt reports swelling/infection to the right eye. reports she was seen here 2 days ago and had improvement after an antibiotic injection but her redness and swelling has now increased. Triage Nursing Assessment: pt is aox3, pupils perrl, afebrile, resps easy and non labored, radial pulses strong and equal, cap refill < 3 seconds, pt skin pink warm dry. redness and swelling to the right periorbital area, skin is intact. Physician History: R eyelid abscess x2 days. Pt seen in the ER 2 days ago and given IM Rocephin/Rx for Amoxil. Pt states that it has enlarged and wants it lanced. She denies fever. Timing/Duration: other (2 days) Quality: painful Severity: moderate Location: other (R eyelid) Possible Causes: other (Abscess) Associated Symptoms: edema, No blisters, No change in skin texture, No difficulty breathing, No fever, No flushing, No headache, No hives, No jaundice, No malaise, No nasal congestion, No numbness, No pallor, No paresthesia, No petechiae, No rash, No sore throat Allergies/Adverse Reactions: No Known Drug Allergies Allergy (Verified 06/06/21 15:26) Hx Tetanus, Diphtheria Vaccination/Date Given: Yes Hx Influenza Vaccination/Date Given: No Hx Pneumococcal Vaccination/Date Given: No Immunizations Up to Date: Yes Travel Risk - International Travel Have you traveled outside of the country in past 3 weeks: No - Coronavirus Screening Are you exhibiting any of the following symptoms?: No Close contact with a COVID-19 positive Pt in past 14-21 Days: No - Vaccine Status Have you recieved a Covid-19 vaccination: No - Review of Systems Constitutional: No Symptoms Ears, Nose, & Throat: No Symptoms Respiratory: No Symptoms Cardiac: No Symptoms Abdominal/Gastrointestinal: No Symptoms Genitourinary Symptoms: No Symptoms Musculoskeletal: No Symptoms Neurological: No Symptoms Psychological: No Symptoms Endocrine: No Symptoms Hematologic/Lymphatic: No Symptoms Immunological/Allergic: No Symptoms - Past Medical History Pertinent Past Medical History: No Neurological History: No Pertinent History ENT History: No Pertinent History Cardiac History: No Pertinent History Respiratory History: No Pertinent History Endocrine Medical History: No Pertinent History Musculoskeletal History: Fibromyalgia, Fractures GI Medical History: Hepatitis History: Other Psycho-Social History: Anxiety, Bipolar, Depression, Other Female Reproductive Disorders: No Pertinent History Other Medical History: 2016 Fractured both feet. 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 - Past Surgical History Past Surgical History: Yes Neuro Surgical History: No Pertinent History Cardiac: No Pertinent History Respiratory: No Pertinent History Gastrointestinal: No Pertinent History Genitourinary: No Pertinent History Musculoskeletal: No Pertinent History Female Surgical History: Dilation & Curettage Other Surgical History: D&C 2001 - Social History Smoking Status: Current every day smoker How long have you smoked: 20years Exposure to second hand smoke: Yes Alcohol Use: Socially Drug Use: none Patient Lives Alone: No Significant Family History: no pertinent family hx - Female History Hx Last Menstrual Period: 05/24/21 Hx Now: No - Nursing Vital Signs Nursing Vital Signs: Initial Vital Signs Temperature 98.7 F 06/06/21 15:15 Pulse Rate 102 H 06/06/21 15:15 Respiratory Rate 18 06/06/21 15:15 Blood Pressure 143/88 06/06/21 15:15 O2 Sat by Pulse Oximetry 95 06/06/21 15:15 Pain Scale Pain Intensity 6 [place]ly hypertensive/tachy - Physical Exam General Appearance: no apparent distress Eye Exam: other (Abscess superior eyelid) Ears, Nose, Throat Exam: normal ENT inspection, TMs normal, pharynx normal, moist mucous membranes Neck Exam: normal inspection, non-tender, supple, full range of motion Respiratory Exam: normal breath sounds, lungs clear, airway intact, No respiratory distress Cardiovascular Exam: tachycardia (Mildly) Gastrointestinal/Abdomen Exam: soft, normal bowel sounds, No tenderness Back Exam: normal inspection Extremity Exam: normal inspection Neurologic Exam: alert, oriented x 3, cooperative, helper animal laboratory II-XII nml as tested, normal mood/affect, nml cerebellar function, nml station & gait, sensation nml Skin Exam: other (Abscess R eyelid) Lymphatic Exam: No adenopathy SpO2 Interpretation: normal SpO2: 95 O2 Delivery: Room Air - Course Nursing assessment & vital signs reviewed: Yes Ordered Tests: Medication Summary Discontinued Medications Generic Name Dose Route Start Last Admin Trade Name Freq PRN Reason Stop Dose Admin Ceftriaxone Sodium 1,000 mg 06/06/21 15:49 06/06/21 16:02 Rocephin 1000 Mg Inj IM 06/06/21 15:50 1,000 mg STAT ONE Administration Ceftriaxone Sodium Confirm 06/06/21 16:00 Rocephin 1000 Mg Inj Administered 06/06/21 16:01 Dose 1,000 mg .ROUTE .STK-MED ONE Lidocaine HCl Confirm 06/06/21 16:00 Xylocaine 1% Hcl 20 Ml Mdv Administered 06/06/21 16:01 Dose 8 ml .ROUTE .STK-MED ONE - Progress Progress Note: 06/06/21 15:45 Pt demanded and consented to I/D R eyelid Prepped w Hibiclens Anes w 1% Lido wo epi After local anesthesia, pt refused I/D Risks explained to pt. Counseled pt/family regarding: diagnosis, need for follow-up - Departure Departure Disposition: Home Clinical Impression: Abscess Condition: Stable Critical Care Time: No Referrals: DOCTOR,NO FAMILY [Primary Care Provider] - Instructions: Leobardo (EMILY) Additional Instructions: Follow up with your family MD in AM Continue with amoxicillin Start Doxycycline Return to ER as needed Prescriptions: Doxycycline Monohydrate 100 mg PO BID #20 tablet
[2021-06-06] MEDS ORDERED: Rocephin 1000 MG INJ IM ONE (15:49)
[2021-06-06] MEDS ORDERED: Rocephin 1000 MG INJ ONE (16:00)
[2021-06-06] MEDS ORDERED: XYLOCAINE 1% HCL 20 ML MDV ONE (16:00)
[2021-06-06 16:12] VITALS: BP 117/61; PULSE 94
[2021-06-06 17:28] VITALS: O2SAT 95
== END 2021-06-06 16:28 | disposition home or self-care (01) ==
LOC: ED 15:11
DX: H00.033 Abscess of eyelid right eye, unspecified eyelid (principal)
CPT/HCPCS: 96372; 99283; J0696

== ENCOUNTER 2021-06-09 10:45 | Emergency (ER) | payer OTHER ==
[2021-06-09] MEDS ORDERED: XYLOCAINE 2% HCL 20 ML MDV IJ ONE (11:05)
[2021-06-09] MEDS ORDERED: XYLOCAINE 2% HCL 20 ML MDV ONE (11:09)
[2021-06-09 11:14] VITALS: O2SAT 100
--- NOTE | 2021-06-09 11:50 | ERPHSYRPT ---
- History of Present Illness Time Seen by Provider: 06/09/21 11:10 Source: patient Exam Limitations: no limitations Patient Subjective Stated Complaint: R eye abscess. states she has been here 3 times for this so far and "2 rounds of abx hasnt worked so it probably needs t aken out." Triage Nursing Assessment: pt to ED c/o abscess above R eye x 1 week. states "it was a small mass for about a year" but reports over last week it has gotten bigger and more painful. rates 5/10 pain now. denies vision changes Physician History: Patient is a 35-year-old female presents to our ED for evaluation of a eyebrow abscess. Patient has been in our ED 3 times for the same. Patient completed 2 courses of antibiotics. The abscess continues to grow. Patient states the area has been swollen for approximately 1 year. Patient tried to incise and drain it herself however symptoms became worse over the past week. no acute change in vision. No nausea or vomiting. No headache. Pain rated 5 out of 10. Symptoms are mild to moderate in intensity. Palpation reproduces symptoms. Patient otherwise feels well. She voices no other complaints or concerns at this time. Timing/Duration: week(s) (1 week) Severity: moderate Modifying Factors: Improves With: nothing Associated Symptoms: denies symptoms Allergies/Adverse Reactions: No Known Drug Allergies Allergy (Verified 06/09/21 11:15) Hx Tetanus, Diphtheria Vaccination/Date Given: Yes Hx Influenza Vaccination/Date Given: No Hx Pneumococcal Vaccination/Date Given: No Immunizations Up to Date: No Travel Risk - International Travel Have you traveled outside of the country in past 3 weeks: No - Coronavirus Screening Are you exhibiting any of the following symptoms?: No Close contact with a COVID-19 positive Pt in past 14-21 Days: No - Vaccine Status Have you recieved a Covid-19 vaccination: No - Review of Systems Constitutional: No Symptoms, No Fever, No Chills Eyes: No Symptoms Ears, Nose, & Throat: No Symptoms Respiratory: No Symptoms, No Cough, No Dyspnea Cardiac: No Symptoms, No Chest Pain, No Edema, No Syncope Abdominal/Gastrointestinal: No Symptoms, No Abdominal Pain, No Nausea, No Vomiting, No Diarrhea Genitourinary Symptoms: No Symptoms, No Dysuria Musculoskeletal: No Symptoms, No Back Pain, No Neck Pain Skin: No Symptoms, No Rash Neurological: No Symptoms, No Dizziness, No Focal Weakness, No Sensory Changes Psychological: No Symptoms Endocrine: No Symptoms Hematologic/Lymphatic: No Symptoms Immunological/Allergic: No Symptoms All Other Systems: Reviewed and Negative - Past Medical History Pertinent Past Medical History: Yes Neurological History: No Pertinent History ENT History: No Pertinent History Cardiac History: No Pertinent History Respiratory History: No Pertinent History Endocrine Medical History: No Pertinent History Musculoskeletal History: Fibromyalgia, Fractures GI Medical History: Hepatitis History: Other Psycho-Social History: Anxiety, Bipolar, Depression, Other Female Reproductive Disorders: No Pertinent History Other Medical History: 2016 Fractured both feet. 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 - Past Surgical History Past Surgical History: Yes Neuro Surgical History: No Pertinent History Cardiac: No Pertinent History Respiratory: No Pertinent History Gastrointestinal: No Pertinent History Genitourinary: No Pertinent History Musculoskeletal: No Pertinent History Female Surgical History: Dilation & Curettage Other Surgical History: D&C 2001 - Social History Smoking Status: Current every day smoker How long have you smoked: 20years Exposure to second hand smoke: Yes Alcohol Use: Socially Drug Use: none Patient Lives Alone: No Significant Family History: no pertinent family hx - Female History Hx Now: No - Nursing Vital Signs Nursing Vital Signs: Initial Vital Signs Temperature 98.2 F 06/09/21 11:02 Pulse Rate 96 H 06/09/21 11:02 Respiratory Rate 20 06/09/21 11:02 Blood Pressure 136/80 06/09/21 11:02 O2 Sat by Pulse Oximetry 100 06/09/21 11:02 Pain Scale Pain Intensity 5 - Physical Exam General Appearance: no apparent distress, alert Eye Exam: PERRL/EOMI, eyes nml inspection Ears, Nose, Throat Exam: normal ENT inspection, TMs normal, pharynx normal, moist mucous membranes Neck Exam: normal inspection, non-tender, supple, full range of motion Respiratory Exam: normal breath sounds, lungs clear, airway intact, No respiratory distress Cardiovascular Exam: regular rate/rhythm, normal heart sounds, normal peripheral pulses Gastrointestinal/Abdomen Exam: soft, normal bowel sounds, No tenderness, No mass Back Exam: normal inspection, normal range of motion, No CVA tenderness, No vertebral tenderness Extremity Exam: normal inspection, normal range of motion, pelvis stable Neurologic Exam: alert, oriented x 3, cooperative, normal mood/affect, sensation nml, No motor deficits Skin Exam: normal color, warm, dry, No rash Lymphatic Exam: No adenopathy SpO2 Interpretation: normal SpO2: 100 O2 Delivery: Room Air Procedures - Incision and Drainage Time of Procedure: 12:10 Site: Right eyebrow. Anesthesia: 2% Lidocaine cc's of anesthesia: 3 Blade Size: 11 I & D Procedure: hibiclens prep, sterile drapes applied Progress: Abscess was incised. Scant purulent drainage expressed. However after disruption of loculations there appeared to be a mass deep to the abscess. This mass appears to be an inflamed or hypertrophic right lacrimal gland. Patient will need referral to ophthalmology for further evaluation. Patient tolerated procedure well. No intraprocedural or postprocedural complications. No indication for antibiotics. Patient just completed 2 courses of antibiotics prior to this incision and drainage. - Laceration/Wound Repair Right Eye Time of Procedure: 11:10 - Course Nursing assessment & vital signs reviewed: Yes Ordered Tests: Medication Summary Discontinued Medications Generic Name Dose Route Start Last Admin Trade Name Ivanna PRN Reason Stop Dose Admin Lidocaine HCl 5 ml 06/09/21 11:05 06/09/21 11:11 Lidocaine Hcl 2% 20 Ml Mdv IJ 06/09/21 11:06 5 ml STAT ONE Administration Lidocaine HCl Confirm 06/09/21 11:09 Lidocaine Hcl 2% 20 Ml Mdv Administered 06/09/21 11:10 Dose 5 ml .ROUTE .Uber ONE - Progress Progress: improved Progress Note: Incision and drainage performed. The abscess was assessed using a large bore needle. We were able to aspirate purulent material. We move forward with an incision using 11 blade. Scant to small amounts of purulent fluid expressed. The area was further examined. There appears to be a hypertrophic or inflamed lacrimal gland just deep to the incision site. Patient states that she has been experiencing swelling to this particular site over the past year. Patient will need referral to further investigate the nature of the suspected lacrimal gland swelling. Last week patient attempted to incise and drain the swelling while at home. Patient states the swelling became acutely worse. She completed 2 course of antibiotics. It appears that the purulent material that was expressed during the I&D procedure was infection the patient introduced while attempting to drain the swelling. But there appears to be an underlying pathology that involved swelling of the lacrimal gland. No indication for antibiotics at this time. We will make a referral to ophthalmology for further evaluation and treatment. 06/09/21 12:12 Counseled pt/family regarding: diagnosis, need for follow-up - Departure Departure Disposition: Home Clinical Impression: Abscess, Swollen lacrimal gland Condition: Stable Critical Care Time: No Referrals: DOCTOR,NO FAMILY [Primary Care Provider] - Additional Instructions: Discharge/Care Plan DAVID MEDRANO was seen on 06/09/21 in the Emergency Room. The patient was counseled regarding Diagnosis,Lab results, Imaging studies, need for follow up and when to return to the Emergency Room. Prescriptions given: Discharge Note I have spoken with the patient and/or caregivers. I have explained the patient's condition, diagnosis and treatment plan based on the information available to me at this time. I have answered the patient's and/or caregiver's questions and addressed any concerns. The patient and/or caregivers have as good understanding of the patient's diagnosis, condition and treatment plan as can be expected at this point. The vital signs have been stable. The patient's condition is stable and appropriate for discharge from the emergency department. The patient will pursue further outpatient evaluation with the primary care physician or other designated or consulting physician as outlined in the discharge instructions. The patient and/or caregivers are agreeable to this plan of care and follow-up instructions have been explained in detail. The patient and/or caregivers have received these instruction. The patient/and or caregivers are aware that any significant change in condition or worsening of symptoms should prompt an immediate return to this or the closest emergency department or call 911.
[2021-06-09 12:10] VITALS: BP 142/84; PULSE 81
== END 2021-06-09 12:29 | disposition home or self-care (01) ==
LOC: ED 10:45
DX: H04.009 Unspecified dacryoadenitis, unspecified lacrimal gland (principal); R59.9 Enlarged lymph nodes, unspecified
CPT/HCPCS: 96372; 99283

== ENCOUNTER 2023-08-11 17:10 | Emergency (ER) | payer OTHER ==
[2023-08-11 17:46] VITALS: TEMP 97.9
[2023-08-11] MEDS ORDERED: Sodium Chloride 0.9% 1000 ML 1,000 ML IV STA (18:10)
[2023-08-11] MEDS ORDERED: TORAdol 30 mg Injection IV ONE (18:10)
[2023-08-11] MEDS ORDERED: TORAdol 30 mg Injection ONE (18:15)
[2023-08-11] MEDS ORDERED: Sodium Chloride 0.9% 1000 ML 1,000 ML ONE (18:15)
[2023-08-11 18:18] LABS: Absolute Neutrophil Ct (ANC) 7.14 x10^3/uL (1.4-6.9); BASOPHIL % 0.5 % (0.0-0.4); Basophil (Absolute #) 0.05 x10^3/uL (0-0.4); Eosinophil % 0.5 % (0.00-5.0); Eosinophil (Absolute #) 0.05 x10^3/uL (0-0.5); Hemoglobin 12.4 g/dL (12.0-16.0); IMMATURE GRAN # 0.03 x10^3u/L (0.00-0.03); IMMATURE GRAN % 0.3 % (0.00-0.4); Lymphocyte (Absolute #) 1.72 x10^3/uL (1.0-4.6); Lymphocytes % 16.8 % (24.0-44.0); Mean Cell Volume 97.2 fL (78-100); Mean Corpuscular Hemoglobin 31.7 pg (26-32); Mean Corpuscular Hgb Concent. 32.6 g/dL (32-36); Mean Platelet Volume 9.2 fL (7.5-11.0); Monocyte (Absolute #) 1.26 x10^3/uL (0.0-1.3); Monocytes % 12.3 % (0.0-12.0); Neutrophil % 69.6 % (36.0-66.0); Platelet Count 291 x10^3/uL (150-450); Red Blood Count 3.91 x10^6/uL (4.1-5.4); Red Cell Distribution Width 16.2 % (11.5-14.0); White Blood Count 10.3 x10^3/uL (4.0-10.5)
[2023-08-11 18:18] LABS: Appearance Clear (Clear); Bacteria None Seen /HPF (None Seen); Bilirubin Negative (Negative); Blood Large (Negative); Epithelial Cells None Seen /HPF (None Seen); Glucose, Urine Negative (Negative); Hyaline Casts NONE SEEN /LPF (0-2); Ketones Negative (Negative); Leukocyte Esterase Trace (Negative); Nitrite Negative (Negative); Protein,Urine Dip Negative (Negative); RBC >100 /HPF (0-5); Specific Gravity <=1.005 (1.005-1.030); Urobilinogen 0.2 mg/dL (0.2)
[2023-08-11 18:23] LABS: ALBUMIN 4.1 g/dL (3.5-5.0); ANION GAP 15.3 MEQ/L (5-15); BILIRUBIN,TOTAL 0.3 mg/dL (0.2-1.3); Calcium 8.6 mg/dL (8.4-10.2); Creatinine 1 0.44 mg/dL (0.52-1.04); EST GLOMERULAR FILTRATION RATE 125.3 ML/MIN; Total Protein 7.5 g/dL (6.3-8.2)
[2023-08-11 18:24] LABS: ADD URINE CULTURE? NO (NO)
[2023-08-11 18:53] VITALS: O2SAT 97
[2023-08-11 19:58] VITALS: BP 137/93; PULSE 83; RESP 24
--- NOTE | 2023-08-11 19:58 | XRAY ---
CLINICAL HISTORY:left lower abd pain, heavy cycle COMPARISON:None. TECHNIQUE:A CT scan of the abdomen and pelvis was performed with IV contrast. 80c.c of Injection Isovue (370 mg/ 100ml) was administered as an intravenous contrast agent. Coronal and sagittal reconstructive images were also obtained. FINDINGS: The uterus appears normal in size, and measures 10 x 6 x 8 cm with normal endometrium. A small cystic lesion is seen in the left adnexa measuring 3.6 x 3.1 x 2.4 cm without any internal septations or enhancing solid component. The right ovary is normal. No evidence of any pelvic lymphadenopathy. The liver is normal in size and measures 18cm. No focal or diffuse parenchymal abnormality. The portal vein, intrahepatic biliary radicals, and the bile ducts are normal. The spleen, pancreas, and adrenal glands are unremarkable. The kidneys are unremarkable. They are normal in size and shape. No calculi or hydronephrosis. The gallbladder is normal. No pericholecystic collection or radio-dense calculi in the gall bladder. The ascending colon, the transverse colon, and the descending colon, visualized small bowel loops do not show any evidence of dilatation or obstruction. Multiple tiny uncomplicated diverticula are seen in the transverse, descending, and sigmoid colon without any evidence of inflammatory changes. Normal appearing Appendix. Small fat-containing umbilical hernia. There is no evidence of significant enlargement of the mesenteric or retroperitoneal lymph nodes. Mild degenerative changes are seen in the lower lumbar spine with grade 1 anterolisthesis at the L4-L5 level. IMPRESSION: 1. Left adnexal cyst measuring 3.6 x 3.1 x 2.4 cm, not showing any significant enhancing solid component, requiring clinical follow-up and MRI if clinically indicated. 2. Uncomplicated colonic diverticulosis. 3. Mild degenerative changes in the lower lumbar spine with anterolisthesis at L4-L5 level. Electronically Signed by: Lian Lam MD. (08/11/2023 19:53:09 EST)
[2023-08-11] MEDS ORDERED: PROVERA10 MG PO STA (20:23)
--- NOTE | 2023-08-11 20:29 | ERPHSYRPT ---
- History of Present Illness Time Seen by Provider: 08/11/23 17:11 Source: patient Exam Limitations: no limitations Patient Subjective Stated Complaint: Abdominal pain Triage Nursing Assessment: Patient ambulated back to ED and transferred self to bed. Patient A+O X3. Patient's skin pink, warm and dry. Patient complains of lower abdominal pain 10/10 constant sharp pain. Patient states she is on her menstrual cycle and has been bleeding for 10 days. Patient complains of Nausea, but denies vomiting or diarrhea. Physician History: 38 years old female presented in the ER with chief complaint of lower abdominal pain and heavy menstrual bleeding. Patient report her cycles are pretty regular and usually bleeds for day but this time she has been bleeding for the last 10 days and passing some clots as well. She is also complaining of increasing pain in the suprapubic/left lower quadrant moderate to severe sharp which has not usual with her cycle. Denies associated nausea vomiting or diarrhea. No fever or chills reported. Denies any urinary complaints. Denies dizziness or lightheadedness. Allergies/Adverse Reactions: No Known Drug Allergies Allergy (Verified 08/11/23 17:33) Hx Tetanus, Diphtheria Vaccination/Date Given: Yes Hx Influenza Vaccination/Date Given: No Hx Pneumococcal Vaccination/Date Given: No Travel Risk - International Travel Have you traveled outside of the country in past 3 weeks: No - Coronavirus Screening Are you exhibiting any of the following symptoms?: No Close contact with a COVID-19 positive Pt in past 14-21 Days: No - Vaccine Status Have you recieved a Covid-19 vaccination: No - Review of Systems Constitutional: No Symptoms Eyes: No Symptoms Ears, Nose, & Throat: No Symptoms Respiratory: No Symptoms Cardiac: No Symptoms Abdominal/Gastrointestinal: Abdominal Pain Genitourinary Symptoms: Vaginal Bleeding Musculoskeletal: No Symptoms Skin: No Symptoms Neurological: No Symptoms Hematologic/Lymphatic: No Symptoms Immunological/Allergic: No Symptoms - Past Medical History Pertinent Past Medical History: Yes Neurological History: No Pertinent History ENT History: No Pertinent History Cardiac History: No Pertinent History Respiratory History: No Pertinent History Endocrine Medical History: No Pertinent History Musculoskeletal History: Fibromyalgia, Fractures GI Medical History: Hepatitis History: Other Psycho-Social History: Anxiety, Bipolar, Depression, Other Female Reproductive Disorders: No Pertinent History Other Medical History: 2016 Fractured both feet. 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 - Past Surgical History Past Surgical History: Yes Neuro Surgical History: No Pertinent History Cardiac: No Pertinent History Respiratory: No Pertinent History Gastrointestinal: No Pertinent History Genitourinary: No Pertinent History Musculoskeletal: No Pertinent History Female Surgical History: Dilation & Curettage Other Surgical History: D&C 2001 - Social History Smoking Status: Current every day smoker How long have you smoked: 20years Exposure to second hand smoke: Yes Alcohol Use: Socially Drug Use: none Patient Lives Alone: No Significant Family History: no pertinent family hx - Female History Hx Last Menstrual Period: currently Hx Now: (unkn) - Nursing Vital Signs Nursing Vital Signs: Initial Vital Signs Temperature 97.9 F 08/11/23 17:36 Pulse Rate 85 08/11/23 17:36 Respiratory Rate 18 08/11/23 17:36 Blood Pressure 146/103 08/11/23 17:36 O2 Sat by Pulse Oximetry 99 08/11/23 17:36 Pain Scale Pain Intensity 10 - Physical Exam General Appearance: no apparent distress, alert Eye Exam: PERRL/EOMI Ears, Nose, Throat Exam: normal ENT inspection Neck Exam: normal inspection Respiratory Exam: normal breath sounds, lungs clear, airway intact Cardiovascular Exam: regular rate/rhythm, normal heart sounds Gastrointestinal/Abdomen Exam: soft, normal bowel sounds, tenderness (Left flank/left lower quadrant/suprapubic area) Back Exam: normal inspection, normal range of motion Extremity Exam: normal inspection, normal range of motion Neurologic Exam: alert, oriented x 3, cooperative Skin Exam: normal color SpO2 Interpretation: normal SpO2: 97 O2 Delivery: Room Air Ordered Tests: Active Orders 24 hr Category Date Time Status IV Insertion STAT Care 08/11/23 18:10 Active NPO (ED) STAT Care 08/11/23 18:10 Active ABDOMEN AND PELVIS W CONTRAST [CT] Stat Exams 08/11/23 18:10 Completed CBC W DIFF Stat Lab 08/11/23 18:00 Completed CMP Stat Lab 08/11/23 18:00 Completed LIPASE Stat Lab 08/11/23 18:00 Completed Lactic Acid Stat Lab 08/11/23 18:32 Completed UA W/RFX UR CULTURE Stat Lab 08/11/23 18:09 Completed Medication Summary Discontinued Medications Generic Name Dose Route Start Last Admin Trade Name Freq PRN Reason Stop Dose Admin Sodium Chloride 1,000 mls @ 999 mls/hr 08/11/23 18:10 08/11/23 18:17 Sodium Chloride 0.9% 1000 Ml IV 08/11/23 19:10 999 mls/hr .Q1H1M STA Administration Sodium Chloride Confirm 08/11/23 18:15 Sodium Chloride 0.9% 1000 Ml Administered 08/11/23 18:16 Dose 1,000 mls @ ud .ROUTE .STK-MED ONE Ketorolac Tromethamine 30 mg 08/11/23 18:10 08/11/23 18:17 Ketorolac Tromethamine 30 Mg/Ml Inj IV 08/11/23 18:11 30 mg STAT ONE Administration Ketorolac Tromethamine Confirm 08/11/23 18:15 Ketorolac Tromethamine 30 Mg/Ml Inj Administered 08/11/23 18:16 Dose 30 mg .ROUTE .STK-MED ONE Lab/Rad Data: Laboratory Result Diagrams 08/11/23 18:00 08/11/23 18:00 Laboratory Results 08/11/23 08/11/23 08/11/23 Range/Units 18:32 18:09 18:00 WBC (4.0-10.5) x10^3/uL RBC (4.1-5.4) x10^6/uL Hgb (12.0-16.0) g/dL Hct (35-47) % MCV (78-100) fL MCH (26-32) pg MCHC (32-36) g/dL RDW (11.5-14.0) % Plt Count (150-450) x10^3/uL MPV (7.5-11.0) fL Gran % (36.0-66.0) % Immature Gran % (Auto) (0.00-0.4) % Nucleat RBC Rel Count (0.00-0.1) % Eos # (Auto) (0-0.5) x10^3/uL Immature Gran # (Auto) (0.00-0.03) x10^3u/L Absolute Lymphs (auto) (1.0-4.6) x10^3/uL Absolute Monos (auto) (0.0-1.3) x10^3/uL Absolute Nucleated RBC (0.00-0.01) x10^3u/L Lymphocytes % (24.0-44.0) % Monocytes % (0.0-12.0) % Eosinophils % (0.00-5.0) % Basophils % (0.0-0.4) % Absolute Granulocytes (1.4-6.9) x10^3/uL Basophils # (0-0.4) x10^3/uL Sodium 131 L (137-145) mmol/L Potassium 4.0 (3.5-5.1) mmol/L Chloride 100 (98-107) mmol/L Carbon Dioxide 20 L (22-30) mmol/L Anion Gap 15.3 H (5-15) MEQ/L BUN 10 (7-17) mg/dL Creatinine 0.44 L (0.52-1.04) mg/dL Estimated GFR 125.3 ML/MIN Glucose 100 (74-106) mg/dL Lactic Acid 2.4 H (0.4-2.0) Calcium 8.6 (8.4-10.2) mg/dL Total Bilirubin 0.30 (0.2-1.3) mg/dL AST 24 (14-36) U/L ALT 12 (0-35) U/L Alkaline Phosphatase 93 (38-126) U/L Serum Total Protein 7.5 (6.3-8.2) g/dL Albumin 4.1 (3.5-5.0) g/dL Lipase 79 (23-300) U/L Urine Color Yellow (Yellow) Urine Appearance Clear (Clear) Urine pH 6.0 (4.6-8.0) Ur Specific [place] <=1.005 (1.005-1.030) Urine Protein Negative (Negative) Urine Glucose (UA) Negative (Negative) mg/dL Urine Ketones Negative (Negative) Urine Blood Large A (Negative) Urine Nitrite Negative (Negative) Urine Bilirubin Negative (Negative) Urine Urobilinogen 0.2 (0.2) mg/dL Ur Leukocyte Esterase Trace A (Negative) U Hyaline Cast (Auto) NONE SEEN (0-2) /LPF Urine Microscopic RBC >100 A (0-5) /HPF Urine Microscopic WBC 3-5 (0-5) /HPF Ur Epithelial Cells None Seen (None Seen) /HPF Urine Bacteria None Seen (None Seen) /HPF Urine Culture Reflexed NO (NO) 08/11/23 Range/Units 18:00 WBC 10.3 (4.0-10.5) x10^3/uL RBC 3.91 L (4.1-5.4) x10^6/uL Hgb 12.4 (12.0-16.0) g/dL Hct 38.0 (35-47) % MCV 97.2 (78-100) fL MCH 31.7 (26-32) pg MCHC 32.6 (32-36) g/dL RDW 16.2 H (11.5-14.0) % Plt Count 291 (150-450) x10^3/uL MPV 9.2 (7.5-11.0) fL Gran % 69.6 H (36.0-66.0) % Immature Gran % (Auto) 0.3 (0.00-0.4) % Nucleat RBC Rel Count 0.0 (0.00-0.1) % Eos # (Auto) 0.05 (0-0.5) x10^3/uL Immature Gran # (Auto) 0.03 (0.00-0.03) x10^3u/L Absolute Lymphs (auto) 1.72 (1.0-4.6) x10^3/uL Absolute Monos (auto) 1.26 (0.0-1.3) x10^3/uL Absolute Nucleated RBC 0.00 (0.00-0.01) x10^3u/L Lymphocytes % 16.8 L (24.0-44.0) % Monocytes % 12.3 H (0.0-12.0) % Eosinophils % 0.5 (0.00-5.0) % Basophils % 0.5 (0.0-0.4) % Absolute Granulocytes 7.14 H (1.4-6.9) x10^3/uL Basophils # 0.05 (0-0.4) x10^3/uL Sodium (137-145) mmol/L Potassium (3.5-5.1) mmol/L Chloride (98-107) mmol/L Carbon Dioxide (22-30) mmol/L Anion Gap (5-15) MEQ/L BUN (7-17) mg/dL Creatinine (0.52-1.04) mg/dL Estimated GFR ML/MIN Glucose (74-106) mg/dL Lactic Acid (0.4-2.0) Calcium (8.4-10.2) mg/dL Total Bilirubin (0.2-1.3) mg/dL AST (14-36) U/L ALT (0-35) U/L Alkaline Phosphatase (38-126) U/L Serum Total Protein (6.3-8.2) g/dL Albumin (3.5-5.0) g/dL Lipase (23-300) U/L Urine Color (Yellow) Urine Appearance (Clear) Urine pH (4.6-8.0) Ur Specific Hamilton (1.005-1.030) Urine Protein (Negative) Urine Glucose (UA) (Negative) mg/dL Urine Ketones (Negative) Urine Blood (Negative) Urine Nitrite (Negative) Urine Bilirubin (Negative) Urine Urobilinogen (0.2) mg/dL Ur Leukocyte Esterase (Negative) U Hyaline Cast (Auto) (0-2) /LPF Urine Microscopic RBC (0-5) /HPF Urine Microscopic WBC (0-5) /HPF Ur Epithelial Cells (None Seen) /HPF Urine Bacteria (None Seen) /HPF Urine Culture Reflexed (NO) - Progress Progress: improved Air Movement: good Progress Note: 08/11/23 20:30 38 years old is evaluated in the ER with complaints of heavy menstrual bleeding with left flank/left lower abdominal pain. Patient has tenderness in right lower quadrant/flank area. She is given symptomatic treatment along with fluids. Workup showed normal white count, fairly unremarkable chemistries except for some element of dehydration. No UTI. I have obtained CT abdomen pelvis which showed left-sided adnexal cyst which patient is aware of as she has it for a long time. It did not show any septation or solid component. Rec commended outpatient follow-up with [facility] for reevaluation. I do not know the exact cause of her heavy bleeding. I have given her Provera in here and will continue with it to go home for next few days and recommended outpatient follow- up. CT abdomen pelvis is negative for any other acute findings. Do not think she needs any other workup and is stable for discharge with outpatient follow- up. Discussed signs symptoms of worsening needing return to ER which she seems understanding. Blood Culture(s) Obtained: No Antibiotics given: No Counseled pt/family regarding: lab results, diagnosis, need for follow-up, rad results Medical Desision Making - Diagnostic Testing Diagnostic test were ordered, analyzed, and reviewed by me: Yes Radiological Interpretation: Reviewed by me, Teleradiologist Report - Risk of complications The pt has a mod risk of morbidity or mortality based on: Need for prescription drug management - Departure Departure Disposition: Home Clinical Impression: Dysfunctional uterine bleeding, Metrorrhagia, Adnexal cyst Condition: Stable Critical Care Time: No Referrals: DON CM MD [Primary Care Provider] - Follow up/PCP as directed Instructions: Severe Abdominal Pain, Adult (DC), Heavy Periods (DC) Additional Instructions: Take Tylenol/ibuprofen as needed. Follow-up with your primary care/[facility] for reevaluation. Return to ER for intractable pain or worsening bleeding or if feeling dizzy or lightheaded. Etc. Prescriptions: Medroxyprogesterone Acetate [Provera] 5 mg PO DAILY 7 Days #7 tablet
== END 2023-08-11 20:53 | disposition home or self-care (01) ==
LOC: ED 17:10
DX: N92.1 Excessive and frequent menstruation with irregular cycle (principal); N93.8 Other specified abnormal uterine and vaginal bleeding; N83.8 Other noninflammatory disorders of ovary, fallopian tube and broad ligament; R10.2 Pelvic and perineal pain; R10.32 Left lower quadrant pain; Z28.310 Unvaccinated for COVID-19; Z72.0 Tobacco use
CPT/HCPCS: 36000; 36415; 74177; 80053; 81001; 83605; 83690; 85025; 96374; 99284; J1885; A9270-GY

== ENCOUNTER 2024-06-14 10:04 | Emergency (ER) | payer OTHER ==
[2024-06-14 10:22] VITALS: TEMP 98.2; O2SAT 98
[2024-06-14] MEDS ORDERED: Reglan 10 MG/2 ML ONE (10:47)
[2024-06-14] MEDS ORDERED: PROTONIX 40 MG IV IV ONE (10:47)
[2024-06-14] MEDS ORDERED: Zofran 4 MG/2 ML VIAL ONE (10:47)
[2024-06-14] MEDS ORDERED: Sodium Chloride 0.9% 1000 ML 1,000 ML ONE (10:47)
[2024-06-14] MEDS: Sodium Chloride 0.9% 1000 ML 1,000 ML IV STA (10:48)
[2024-06-14] MEDS: Reglan 10 MG/2 ML IV ONE (10:48)
[2024-06-14] MEDS: Zofran 4 MG/2 ML VIAL IV ONE (10:48)
[2024-06-14] MEDS: PROTONIX 40 MG IV IV ONE (10:48)
[2024-06-14 10:49] LABS: BASOPHIL % 0.7 % (0.1-1.2); Basophil (Absolute #) 0.06 x10^3/uL (0.01-0.08); Eosinophil (Absolute #) 0.09 x10^3/uL (0.04-0.36); Hematocrit 40.5 % (34.1-44.9); Hemoglobin 13.1 g/dL (11.2-15.7); IMMATURE GRAN # 0.04 x10^3u/L (0.001-0.031); IMMATURE GRAN % 0.5 % (0.001-0.429); Lymphocyte (Absolute #) 1.88 x10^3/uL (1.18-3.74); Lymphocytes % 21.8 % (19.3-51.7); Mean Cell Volume 85.8 fL (79.4-94.8); Mean Corpuscular Hemoglobin 27.8 pg (25.6-32.2); Mean Corpuscular Hgb Concent. 32.3 g/dL (32.2-35.5); Mean Platelet Volume 9.2 fL (9.4-12.3); Monocyte (Absolute #) 0.97 x10^3/uL (0.24-0.86); Monocytes % 11.2 % (4.7-12.5); Neutrophil % 64.8 % (34.0-71.1); Platelet Count 408 x10^3/uL (182-369); Red Blood Count 4.72 x10^6/uL (3.93-5.22); Red Cell Distribution Width 21.2 % (11.7-14.4); White Blood Count 8.6 x10^3/uL (3.98-10.04)
[2024-06-14 11:05] LABS: ALBUMIN 4.6 g/dL (3.5-5.0); ANION GAP 16.1 MEQ/L (5-15); BILIRUBIN,TOTAL 0.3 mg/dL (0.2-1.3); Calcium 8.6 mg/dL (8.4-10.2); Creatinine 1 0.62 mg/dL (0.52-1.04); EST GLOMERULAR FILTRATION RATE 115.4 ML/MIN; Potassium 3.9 mmol/L (3.5-5.1)
--- NOTE | 2024-06-14 11:10 | ERPHSYRPT ---
- History of Present Illness Time Seen by Provider: 06/14/24 11:05 Source: patient, family Exam Limitations: no limitations Patient Subjective Stated Complaint: Vomiting Triage Nursing Assessment: Patient ambulated back to ED and transferred self to bed. Patient A+O X3. Patient's skin pink, warm and dry. Patient states she is a daily, heavy drinker of beer and malt beer since May 27, 2024. Patient states her last drink was last night around 1000 and woke up vomiting, body aches all over and states she feels like she is withdrawling from alcohol. Physician History: Patient states she is a daily, heavy drinker of beer and malt beer since May 27, 2024. Patient states her last drink was last night around 1000 and woke up vomiting, body aches all over and states she feels like she is withdrawing from alcohol. Patient is also complaining of fever chills and body ache. Timing/Duration: today Severity: moderate Associated Symptoms: nausea, vomiting, chills, loss of appetite, weakness Allergies/Adverse Reactions: No Known Drug Allergies Allergy (Verified 06/14/24 10:16) Home Medications: No Reportable Medications [No Reported Medications] 06/14/24 [History] Hx Tetanus, Diphtheria Vaccination/Date Given: Yes Hx Influenza Vaccination/Date Given: No Hx Pneumococcal Vaccination/Date Given: No Immunizations Up to Date: Yes Travel Risk - International Travel Have you traveled outside of the country in past 3 weeks: No - Emerging Infectious Disease Are you exhibiting symptoms associated with any current EIDs: No - Review of Systems Constitutional: Fever, Chills, Lethargy, Malaise, Weakness Eyes: No Symptoms Ears, Nose, & Throat: No Symptoms Respiratory: No Cough, No Dyspnea Cardiac: No Chest Pain, No Edema, No Syncope Abdominal/Gastrointestinal: Nausea, Vomiting, No Abdominal Pain, No Diarrhea Genitourinary Symptoms: No Dysuria Musculoskeletal: No Back Pain, No Neck Pain Skin: No Rash Neurological: No Dizziness, No Focal Weakness, No Sensory Changes Psychological: No Symptoms Endocrine: No Symptoms All Other Systems: Reviewed and Negative - Past Medical History Pertinent Past Medical History: Yes Neurological History: No Pertinent History ENT History: No Pertinent History Cardiac History: No Pertinent History Respiratory History: No Pertinent History Endocrine Medical History: No Pertinent History Musculoskeletal History: Fibromyalgia, Fractures GI Medical History: Hepatitis History: Other Psycho-Social History: Anxiety, Bipolar, Depression, Other Female Reproductive Disorders: No Pertinent History Other Medical History: 2016 Fractured both feet. 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 - Past Surgical History Past Surgical History: Yes Neuro Surgical History: No Pertinent History Cardiac: No Pertinent History Respiratory: No Pertinent History Gastrointestinal: No Pertinent History Genitourinary: No Pertinent History Musculoskeletal: No Pertinent History Female Surgical History: Dilation & Curettage Other Surgical History: D&C 2002 Significant Family History: no pertinent family hx - Female History Hx Last Menstrual Period: 2 weeks ago Hx Now: No - Social History Smoking Status: Current every day smoker How long have you smoked: 20years Exposure to second hand smoke: Yes Alcohol Use: Socially Drug Use: none Patient Lives Alone: No - Social Determinants of Health Will the patient participate in the screening: Yes Do you worry about a steady place to live?: No Do you have any problems with any of the following?: No known problems In the past 12 months,have you had to go without utilities?: No Transportation Issues: No Has anyone in your support network made you feel unsafe?: No Have you or anyone in your house had to go without enough: No - Nursing Vital Signs Nursing Vital Signs: Initial Vital Signs Pulse Rate 99 H 06/14/24 10:12 Respiratory Rate 18 06/14/24 10:12 Blood Pressure 159/127 06/14/24 10:12 Pain Scale Pain Intensity 8 - Physical Exam General Appearance: no apparent distress, alert Eye Exam: PERRL/EOMI, eyes nml inspection Ears, Nose, Throat Exam: normal ENT inspection, TMs normal, pharynx normal, moist mucous membranes Neck Exam: normal inspection, non-tender, supple, full range of motion Respiratory Exam: normal breath sounds, lungs clear, No respiratory distress Cardiovascular Exam: regular rate/rhythm, normal heart sounds, normal peripheral pulses Gastrointestinal/Abdomen Exam: soft, normal bowel sounds, No tenderness, No mass Back Exam: normal inspection, normal range of motion, No CVA tenderness, No vertebral tenderness Extremity Exam: normal inspection, normal range of motion, pelvis stable Neurologic Exam: alert, oriented x 3, cooperative, normal mood/affect, nml cerebellar function, nml station & gait, sensation nml, No motor deficits Skin Exam: normal color, warm, dry, No rash Lymphatic Exam: No adenopathy SpO2: 98 - Course Nursing assessment & vital signs reviewed: Yes Ordered Tests: Active Orders 24 hr Category Date Time Status AMA [Release AMA] OM.NOW Care 06/14/24 11:38 Active AMYLASE Stat Lab 06/14/24 10:40 Completed CBC W DIFF Stat Lab 06/14/24 10:40 Completed CMP Stat Lab 06/14/24 10:40 Completed ETHYL ALCOHOL Stat Lab 06/14/24 10:40 Completed LIPASE Stat Lab 06/14/24 10:40 Completed UA W/RFX UR CULTURE Stat Lab 06/14/24 10:43 Received Urine Triage Profile Stat Lab 06/14/24 10:44 Ordered Medication Summary Discontinued Medications Generic Name Dose Route Start Last Admin Trade Name Freq PRN Reason Stop Dose Admin Sodium Chloride 1,000 mls @ 999 mls/hr 06/14/24 10:38 06/14/24 10:48 Sodium Chloride 0.9% 1000 Ml IV 06/14/24 11:38 999 mls/hr .Q1H1M STA Administration Sodium Chloride Confirm 06/14/24 10:47 Sodium Chloride 0.9% 1000 Ml Administered 06/14/24 10:48 Dose 1,000 mls @ ud .ROUTE .STK-MED ONE Metoclopramide HCl 10 mg 06/14/24 10:38 06/14/24 10:48 Metoclopramide Hcl 10 Mg/2 Ml Vial IV 06/14/24 10:39 10 mg STAT ONE Administration Metoclopramide HCl Confirm 06/14/24 10:47 Metoclopramide Hcl 10 Mg/2 Ml Vial Administered 06/14/24 10:48 Dose 10 mg .ROUTE .STK-MED ONE Ondansetron HCl 4 mg 06/14/24 10:38 06/14/24 10:48 Ondansetron Hcl 4 Mg/2 Ml Vial IV 06/14/24 10:39 4 mg STAT ONE Administration Ondansetron HCl Confirm 06/14/24 10:47 Ondansetron Hcl 4 Mg/2 Ml Vial Administered 06/14/24 10:48 Dose 4 mg .ROUTE .STK-MED ONE Pantoprazole Sodium 40 mg 06/14/24 10:38 06/14/24 10:48 Pantoprazole 40 Mg Vial IV 06/14/24 10:39 40 mg STAT ONE Administration Pantoprazole Sodium Confirm 06/14/24 10:47 Pantoprazole 40 Mg Vial Administered 06/14/24 10:48 Dose 40 mg IV .[facility]-MED ONE Lab/Rad Data: Laboratory Result Diagrams 06/14/24 10:40 06/14/24 10:40 Laboratory Results 06/14/24 06/14/24 Range/Units 10:40 10:40 WBC 8.6 (3.98-10.04) x10^3/uL RBC 4.72 (3.93-5.22) x10^6/uL Hgb 13.1 (11.2-15.7) g/dL Hct 40.5 (34.1-44.9) % MCV 85.8 (79.4-94.8) fL MCH 27.8 (25.6-32.2) pg MCHC 32.3 (32.2-35.5) g/dL RDW 21.2 H (11.7-14.4) % Plt Count 408 H (182-369) x10^3/uL MPV 9.2 L (9.4-12.3) fL Gran % 64.8 (34.0-71.1) % Immature Gran % (Auto) 0.5 H (0.001-0.429) % Nucleat RBC Rel Count 0.0 (0.00-0.2) % Eos # (Auto) 0.09 (0.04-0.36) x10^3/uL Immature Gran # (Auto) 0.04 H (0.001-0.031) x10^3u/L Absolute Lymphs (auto) 1.88 (1.18-3.74) x10^3/uL Absolute Monos (auto) 0.97 H (0.24-0.86) x10^3/uL Absolute Nucleated RBC 0.00 (0.00-0.012) x10^3u/L Lymphocytes % 21.8 (19.3-51.7) % Monocytes % 11.2 (4.7-12.5) % Eosinophils % 1.0 (0.7-5.8) % Basophils % 0.7 (0.1-1.2) % Absolute Granulocytes 5.60 (1.56-6.13) x10^3/uL Basophils # 0.06 (0.01-0.08) x10^3/uL Sodium 139 (135-145) mmol/L Potassium 3.9 (3.5-5.1) mmol/L Chloride 108 H (98-107) mmol/L Carbon Dioxide 18 L (22-30) mmol/L Anion Gap 16.1 H (5-15) MEQ/L BUN 8 (7-17) mg/dL Creatinine 0.62 (0.52-1.04) mg/dL Estimated GFR 115.4 ML/MIN Glucose 89 (74-106) mg/dL Calcium 8.6 (8.4-10.2) mg/dL Total Bilirubin 0.30 (0.2-1.3) mg/dL AST 30 (14-36) U/L ALT 24 (0-35) U/L Alkaline Phosphatase 95 (38-126) U/L Serum Total Protein 8.0 (6.3-8.2) g/dL Albumin 4.6 (3.5-5.0) g/dL Amylase 75 (30-110) U/L Lipase 79 (23-300) U/L Ethyl Alcohol 15 H (0-10) mg/dL - Progress Progress: unchanged Progress Note: 06/14/24 11:42 Patient has been refusing for some of the laboratory test include COVID flu and RSV. After some explanation she used the probe by herself to get the sample of nasal swab for flu and RSV. Afterward patient wants to live and does not want any further more care. Patient is advised that her condition can get deteriorate and get worse she can get more sick. Her is with her they both understood the consequences of not seeking treatment or abandoning the treatment. She signed AGAINST MEDICAL ADVICE and left. Counseled pt/family regarding: drug and/or alcohol abuse - Departure Departure Disposition: AMA Clinical Impression: Alcohol abuse Vomiting Qualifiers: Vomiting type: unspecified Nausea presence: with nausea Qualified Code(s): R11.2 - Nausea with vomiting, unspecified Condition: Stable Critical Care Time: No Referrals: DON CM MD [Primary Care Provider] - Follow up/PCP as directed
[2024-06-14 11:15] VITALS: BP 149/91; PULSE 101; RESP 17
[2024-06-14 11:51] LABS: Appearance Turbid (Clear); Bacteria Many /HPF (None Seen); Bilirubin Negative (Negative); Blood Trace (Negative); Epithelial Cells Many /HPF (None Seen); Glucose, Urine Negative (Negative); Ketones Negative (Negative); Leukocyte Esterase Moderate (Negative); Nitrite Negative (Negative); Protein,Urine Dip 30 (Negative); RBC 0-2 /HPF (0-5); Urobilinogen 0.2 mg/dL (0.2)
[2024-06-14 12:03] LABS: INFLUENZA A NEGATIVE (NEGATIVE); INFLUENZA B NEGATIVE (NEGATIVE); RESPIRATORY SYNCTIAL VIRUS NEGATIVE (NEGATIVE); SARS-CoV-2 Xpert Express NEGATIVE (NEGATIVE)
[2024-06-14 12:07] LABS: Mucus Few /HPF (NEGATIVE)
[2024-06-14 13:05] LABS: Amphetamine,Urine NEGATIVE (NEGATIVE); Barbiturate,Urine NEGATIVE (NEGATIVE); Benzodiazepine,Urine NEGATIVE (NEGATIVE); Methadone,Urine NEGATIVE (NEGATIVE); Opiate,Urine NEGATIVE (NEGATIVE); PCP,Urine NEGATIVE (NEGATIVE); THC,Urine POSITIVE (NEGATIVE)
[2024-06-14 13:10] LABS: Cocaine,Urine NEGATIVE (NEGATIVE)
== END 2024-06-14 11:42 | disposition left against medical advice (07) ==
LOC: ED 10:04
DX: F10.10 Alcohol abuse, uncomplicated (principal); R11.2 Nausea with vomiting, unspecified; M79.10 Myalgia, unspecified site; Z72.0 Tobacco use
CPT/HCPCS: 0241U; 36000; 36415; 80053; 80307; 81001; 82077; 82150; 83690; 85025; 87086; 93005; 96374; 96375; 99284; J2405